=== PATIENT | female | born 1955 | race Caucasian/White ===

== ENCOUNTER 2019-10-15 20:47 | Inpatient (IN) | payer BC ==
[2019-10-15] MEDS ORDERED: NITROGLYCERIN SL TABS 0.4 MG TAB SUBLINGUAL PRN (21:00)
[2019-10-15] MEDS ORDERED: ASPIRIN 81 MG PO STA (21:00)
[2019-10-15] MEDS ORDERED: HEPARIN SODIUM,PORCINE 5,000 UNIT/ML 1 ML VIAL IV STA (21:00)
[2019-10-15 21:06] LABS: Glucose,Whole Blood 123 mg/dL (75-99)
[2019-10-15 21:09] LABS: Basophils % (A) 0 %; Eosinophils # (A) 0.1 k/uL (0-0.7); Eosinophils % (A) 1 %; HGB 11.9 gm/dL (11.4-16.0); Lymphocytes # (A) 0.9 k/uL (1.0-4.8); Lymphocytes % (A) 10 %; MCH 28.3 pg (25.0-35.0); MCV 85.8 fL (80.0-100.0); Mean Platelet Volume 7.8; Monocytes # (A) 0.4 k/uL (0-1.0); Monocytes % (A) 4 %; Neutrophils # (A) 8.4 k/uL (1.3-7.7); Neutrophils % (A) 85 %; Platelet Count 234 k/uL (150-450); WBC 9.8 k/uL (3.8-10.6)
--- NOTE | 2019-10-15 21:09 | ED ---
General Adult HPI - General Chief complaint: Nausea/Vomiting/Diarrhea Stated complaint: Not Feeling Well Time Seen by Provider: 10/15/19 20:58 Source: patient, EMS Mode of arrival: EMS Limitations: no limitations - History of Present Illness Initial comments: Patient presents the ED by ambulance for evaluation. Patient states that she is 5 days status post right knee surgery. Patient states that for the past 2 days she has felt "not well", she states that she has had nausea, vomiting and diaphoresis. Patient denies having any other symptoms or complaints. Patient denies fever or chills, headache, focal neuro deficit, chest pain or pressure, dyspnea, cough or cold symptoms, palpitations, dizziness, syncope, abdominal pain, diarrhea or constipation, hematemesis, bloody or melanotic stool, dysuria or urinary symptoms, thigh or calf pain, or any other symptoms or complaints. EKG done on the patient's arrival to the ED shows ST elevations in leads V1 and V2, so STEMI protocol/Back Filler Operator was activated. - Related Data Allergies Allergy/AdvReac Type Severity Reaction Status Date / Time No Known Allergies Allergy Verified 10/15/19 20:55 Review of Systems ROS Statement: Those systems with pertinent positive or pertinent negative responses have been documented in the HPI. ROS Other: All systems not noted in ROS Statement are negative. Past Medical History Past Medical History: Hypertension History of Any Multi-Drug Resistant Organisms: None Reported Past Surgical History: Orthopedic Surgery Past Psychological History: No Psychological Hx Reported Smoking Status: Never smoker Past Alcohol Use History: None Reported Past Drug Use History: None Reported General Exam Limitations: no limitations General appearance: alert, in no apparent distress Head exam: Present: atraumatic, normocephalic Eye exam: Present: normal appearance, PERRL, EOMI ENT exam: Present: mucous membranes moist Neck exam: Present: other (Trachea is in midline). Absent: tenderness Respiratory exam: Present: normal lung sounds bilaterally. Absent: respiratory distress, wheezes, rales, rhonchi Cardiovascular Exam: Present: regular rate, normal rhythm, normal heart sounds, other (Normal radial pulses bilaterally) GI/Abdominal exam: Present: soft. Absent: distended, tenderness Extremities exam: Present: other (Right knee surgical wound with arjun in place and no evidence of infection; negative Prateek's sign bilaterally). Absent: pedal edema, calf tenderness Neurological exam: Present: alert, oriented X3. Absent: motor sensory deficit Psychiatric exam: Present: normal affect, normal mood Skin exam: Present: warm, dry, intact, normal color Course Vital Signs 10/15/19 10/15/19 10/15/19 20:50 21:00 21:05 Temperature 97.8 F Pulse Rate 106 H 110 H Pulse Rate [ 115 H Miter Saw Operator ] Respiratory 16 18 Rate Blood Pressure 107/77 105/79 O2 Sat by Pulse 96 Oximetry 10/15/19 10/15/19 21:11 21:19 Temperature Pulse Rate 111 H 112 H Pulse Rate [ Miter Saw Operator ] Respiratory 16 18 Rate Blood Pressure 103/86 120/84 O2 Sat by Pulse 98 97 Oximetry - Reevaluation(s) Reevaluation #1: 10/15/19 21:00 Case, H&P and EKG findings were discussed with Dr. Nelson (interventional cardiology). Back Filler Operator was activated. Dr. Nelson agrees to proceed with STEMI protocol, and he states that he will be taking the patient to the Back Filler Operator. 10/15/19 21:13 Dr. Nelson called back to the ED requesting that I add a d-dimer onto the patient's blood work. He states that his plan to take the patient to the Back Filler Operator is unchanged. 10/15/19 21:28 Case, H&P, EKG findings and my discussion with Dr. Nelson as above were discussed with Dr. Baires (hospitalist). He accepts ICU admission. He has no further recommendations at this time. 10/15/19 21:30 Case, H&P, EKG findings and my discussions as above were discussed with Dr. Foreman (interior mechanic) who agrees to see the patient in consultation. EKG Findings - EKG Comments: EKG Findings:: Sinus tachycardia, ventricular rate of 112 bpm, normal CO and QRS intervals, normal QT interval, normal axis, ST elevations in leads V1 and V2, no old EKG is available for comparison at this time Medical Decision Making - Medical Decision Making Code STEMI/Back Filler Operator was activated on the patient's arrival to the ED given ST- elevations noted in V1 and V2 of the patient's EKG. Dr. Nelson (intervenional cardiology) was contacted by telephone. He has reviewed the patient's EKG himself, and he agrees with plan to take the patient to the Back Filler Operator. Dr. Baires (hospitalist) has accepted hospital admission. Dr. Foreman (interior mechanic) was also notified about the patient. - Lab Data Result diagrams: 10/15/19 21:00 10/15/19 21:00 Lab Results 10/15/19 10/15/19 10/15/19 Range/Units 20:54 21:00 21:00 WBC 9.8 (3.8-10.6) k/uL RBC 4.20 (3.80-5.40) m/uL Hgb 11.9 (11.4-16.0) gm/dL Hct 36.0 (34.0-46.0) % MCV 85.8 (80.0-100.0) fL MCH 28.3 (25.0-35.0) pg MCHC 33.0 (31.0-37.0) g/dL RDW 14.0 (11.5-15.5) % Plt Count 234 (150-450) k/uL Neutrophils % 85 % Lymphocytes % 10 % Monocytes % 4 % Eosinophils % 1 % Basophils % 0 % Neutrophils # 8.4 H (1.3-7.7) k/uL Lymphocytes # 0.9 L (1.0-4.8) k/uL Monocytes # 0.4 (0-1.0) k/uL Eosinophils # 0.1 (0-0.7) k/uL Basophils # 0.0 (0-0.2) k/uL PT (9.0-12.0) sec INR (<1.2) APTT (22.0-30.0) sec Sodium 130 L (137-145) mmol/L Potassium 4.4 (3.5-5.1) mmol/L Chloride 96 L (98-107) mmol/L Carbon Dioxide 27 (22-30) mmol/L Anion Gap 7 mmol/L BUN 15 (7-17) mg/dL Creatinine 0.74 (0.52-1.04) mg/dL Est GFR (CKD-EPI)AfAm >90 (>60 ml/min/1.73 sqM) Est GFR (CKD-EPI)NonAf 87 (>60 ml/min/1.73 sqM) Glucose 163 H (74-99) mg/dL POC Glucose (mg/dL) 123 H (75-99) mg/dL POC Glu Assistant Plant Manager ID Hafsa Gómez Calcium 8.7 (8.4-10.2) mg/dL Total Bilirubin 0.6 (0.2-1.3) mg/dL AST 46 H (14-36) U/L ALT 47 H (4-34) U/L Alkaline Phosphatase 87 (38-126) U/L Total Creatine Kinase (30-135) U/L Total Protein 6.0 L (6.3-8.2) g/dL Albumin 3.4 L (3.5-5.0) g/dL 10/15/19 10/15/19 Range/Units 21:00 21:00 WBC (3.8-10.6) k/uL RBC (3.80-5.40) m/uL Hgb (11.4-16.0) gm/dL Hct (34.0-46.0) % MCV (80.0-100.0) fL MCH (25.0-35.0) pg MCHC (31.0-37.0) g/dL RDW (11.5-15.5) % Plt Count (150-450) k/uL Neutrophils % % Lymphocytes % % Monocytes % % Eosinophils % % Basophils % % Neutrophils # (1.3-7.7) k/uL Lymphocytes # (1.0-4.8) k/uL Monocytes # (0-1.0) k/uL Eosinophils # (0-0.7) k/uL Basophils # (0-0.2) k/uL PT 10.6 (9.0-12.0) sec INR 1.0 (<1.2) APTT 23.0 (22.0-30.0) sec Sodium (137-145) mmol/L Potassium (3.5-5.1) mmol/L Chloride (98-107) mmol/L Carbon Dioxide (22-30) mmol/L Anion Gap mmol/L BUN (7-17) mg/dL Creatinine (0.52-1.04) mg/dL Est GFR (CKD-EPI)AfAm (>60 ml/min/1.73 sqM) Est GFR (CKD-EPI)NonAf (>60 ml/min/1.73 sqM) Glucose (74-99) mg/dL POC Glucose (mg/dL) (75-99) mg/dL POC Glu Assistant Plant Manager ID Calcium (8.4-10.2) mg/dL Total Bilirubin (0.2-1.3) mg/dL AST (14-36) U/L ALT (4-34) U/L Alkaline Phosphatase (38-126) U/L Total Creatine Kinase 47 (30-135) U/L Total Protein (6.3-8.2) g/dL Albumin (3.5-5.0) g/dL Critical Care Time Critical Care Time: Yes (STEMI) Total Critical Care Time: 30 Disposition Clinical Impression: Vomiting, Diaphoresis Narrative: Suspected ST-elevation myocardial infarction Disposition: ADMITTED IP TO THIS HOSP Condition: Stable Is patient prescribed a controlled substance at d/c from ED?: No Referrals: Holly Michel MD [Primary Care Provider] - 1-2 days Time of Disposition: 21:09
[2019-10-15 21:15] LABS: ALT 47 U/L (4-34); AST 46 U/L (14-36); African American GFR (CKD) >90 (>60 ml/min/1.73 sqM); Albumin 3.4 g/dL (3.5-5.0); Alkaline Phosphatase 87 U/L (38-126); Anion Gap 7 mmol/L; Blood Urea Nitrogen 15 mg/dL (7-17); Calcium 8.7 mg/dL (8.4-10.2); Carbon Dioxide 27 mmol/L (22-30); Chloride 96 mmol/L (98-107); Non-African American GFR(CKD) 87 (>60 ml/min/1.73 sqM); Potassium 4.4 mmol/L (3.5-5.1); Sodium 130 mmol/L (137-145); Total Bilirubin 0.6 mg/dL (0.2-1.3)
[2019-10-15 21:16] LABS: Prothrombin Time 10.6 sec (9.0-12.0)
[2019-10-15 21:31] LABS: Glucose 163 mg/dL (74-99)
[2019-10-15 21:34] LABS: Creatine Kinase MB 2.7 ng/mL (0.0-2.4)
[2019-10-15] MEDS ORDERED: LIDOCAINE 1% INJ 10MG/ML (20 ML MDV) ONE (21:34)
--- NOTE | 2019-10-15 21:34 | XR ---
EXAMINATION TYPE: XR chest 1V portable DATE OF EXAM: 10/15/2019 COMPARISON: NONE HISTORY: Chest pain TECHNIQUE: FINDINGS: Heart and mediastinum are normal. Lungs are clear. Diaphragm is normal. Bony thorax is inta ct. There are chest leads. IMPRESSION: Normal chest.
[2019-10-15] MEDS ORDERED: SODIUM CHLORIDE 0.9% 1,000 ML IV ONE (21:35)
[2019-10-15 21:39] LABS: Troponin I 0.465 ng/mL (0.000-0.034)
[2019-10-15] MEDS ORDERED: MIDAZOLAM 2 MG/2 ML VIAL IVP ONE (21:47)
[2019-10-15] MEDS ORDERED: LIDOCAINE 1% INJ 10MG/ML (20 ML MDV) SQ ONE (21:48)
[2019-10-15] MEDS ORDERED: IOPAMIDOL-370 125ML BTL INJ ONE (22:07)
[2019-10-15] MEDS ORDERED: RX INFO: IV CONTRAST WAS GIVEN 1 EACH MISC MISCELLANE PRN (22:07)
[2019-10-15] MEDS ORDERED: fentaNYL (PF) 50 MCG/ML 2 ML AMP ONE (22:13)
[2019-10-15] MEDS ORDERED: fentaNYL (PF) 50 MCG/ML 2 ML AMP IVP ONE (22:14)
[2019-10-15] MEDS ORDERED: SODIUM CHLORIDE 0.9% 1,000 ML IV SCH (22:15)
--- NOTE | 2019-10-15 22:15 | P.CRDCN ---
History of Present Illness Consult date: 10/15/19 Chief complaint: Shortness of breath History of present illness: 63-year-old female patient with a past medical history significant for hypertens ion was brought to the emergency department for further evaluation of symptoms of nausea and vomiting as well as diaphoresis. The patient stated that she underwent knee surgery about 2 weeks ago. For the last 3 days, she has not been feeding well. She has been feeling tired and fatigued and weak and ill earlier today she has been experiencing symptoms of nausea and vomiting as well as symptoms of being diaphoretic. No symptoms of chest pain or chest discomfort. She did have some shortness of breath. The EKG upon presenting to the emergency department shows sinus rhythm with sinus tachycardia and about [address] segment elevation in the septal leads. Because of her EKG finding which is concerning for ST elevation VT, an emergent heart catheterization was advised. The heart catheterization revealed normal coronaries. The left ventricular end-diastolic pressure was about 6-8 mmHg. When the patient arrived to the cardiac quality assurance lab technician she was slightly hypoxic and she is on oxygen. The procedure was performed from the right groin which was sealed using Angio-Seal with good hemostasis by the end. At this point, the patient is going to undergo computed tomography scan of the chest to rule out a PE which is likely the scenario giving her hypoxemia, sinus tachycardia, and recent history of surgery. At the same time we'll start the patient on heparin. Past Medical History Past Medical History: Hypertension History of Any Multi-Drug Resistant Organisms: None Reported Past Surgical History: Orthopedic Surgery Past Psychological History: No Psychological Hx Reported Smoking Status: Never smoker Past Alcohol Use History: None Reported Past Drug Use History: None Reported Medications and Allergies Allergies Allergy/AdvReac Type Severity Reaction Status Date / Time No Known Allergies Allergy Verified 10/15/19 20:55 Physical Exam Vitals: Vital Signs Temp Pulse Pulse Resp BP Pulse Ox 10/15/19 21:19 112 H 18 120/84 97 10/15/19 21:11 111 H 16 103/86 98 10/15/19 21:05 115 H 10/15/19 21:00 110 H 18 105/79 96 10/15/19 20:50 97.8 F 106 H 16 107/77 Intake and Output 10/15/19 10/15/19 10/15/19 06:59 14:59 22:59 Intake Total 200 Balance 200 Intake: IV 200 Other: Weight 83.915 kg - Constitutional General appearance: no acute distress - Respiratory Respiratory: bilateral: CTA - Cardiovascular Rhythm: regular Heart sounds: normal: S1, S2 Results 10/15/19 21:00 10/15/19 21:00 Cardiac Enzymes 10/15/19 10/15/19 Range/Units 21:00 21:00 AST 46 H (14-36) U/L CK-MB (CK-2) 2.7 H (0.0-2.4) ng/mL Troponin I 0.465 H* (0.000-0.034) ng/mL Coagulation 10/15/19 Range/Units 21:00 PT 10.6 (9.0-12.0) sec APTT 23.0 (22.0-30.0) sec CBC 10/15/19 Range/Units 21:00 WBC 9.8 (3.8-10.6) k/uL RBC 4.20 (3.80-5.40) m/uL Hgb 11.9 (11.4-16.0) gm/dL Hct 36.0 (34.0-46.0) % Plt Count 234 (150-450) k/uL Comprehensive Metabolic Panel 10/15/19 Range/Units 21:00 Sodium 130 L (137-145) mmol/L Potassium 4.4 (3.5-5.1) mmol/L Chloride 96 L (98-107) mmol/L Carbon Dioxide 27 (22-30) mmol/L BUN 15 (7-17) mg/dL Creatinine 0.74 (0.52-1.04) mg/dL Glucose 163 H (74-99) mg/dL Calcium 8.7 (8.4-10.2) mg/dL AST 46 H (14-36) U/L ALT 47 H (4-34) U/L Alkaline Phosphatase 87 (38-126) U/L Total Protein 6.0 L (6.3-8.2) g/dL Albumin 3.4 L (3.5-5.0) g/dL Current Medications Generic Name Dose Route Start Last Admin Trade Name Freq PRN Reason Stop Dose Admin Aspirin 325 mg 10/16/19 09:00 Aspirin PO DAILY ANALY Sodium Chloride 1,000 mls @ 75 mls/hr 02/23/20 22:15 Saline 0.9% IV 10/16/19 06:16 .[id number] ANALY Miscellaneous Information 1 each 10/15/19 22:07 Rx Info: Iv Contrast Was Given MISCELLANE 10/17/19 22:07 DAILY PRN Per Protocol Nitroglycerin 0.4 mg 10/15/19 21:00 Nitrostat SUBLINGUAL Q5M PRN Chest Pain Intake and Output 10/15/19 10/15/19 10/15/19 06:59 14:59 22:59 Intake Total 200 Balance 200 Intake: IV 200 Other: Weight 83.915 kg Patient Weight 10/16/19 06:59 Weight 83.915 kg 10/15/19 21:00 10/15/19 21:00 Assessment and Plan Assessment: Assessment #1 nausea, vomiting, and the phoresis #2 sinus tachycardia #3 status post knee surgery #4 history of hypertension Plan #1 severe underlying coronary artery disease was ruled out. A heart catheterization revealed no disease #2 PE to be ruled out. The patient currently is hemodynamically stable. We'll pursue with a CTA of the chest #3 restart the patient back on heparin as soon as possible. She was given bolus in the emergency department and will start the drip #4 obtain an echocardiogram was Doppler to assess the RV size and function #5 if the PE is massive by CTA, the patient possibly to be transferred to undergo Eko #6 continue monitor the blood pressure and heart rate Thank you for allowing us participate in her care. Please note that the patient is going to be admitted to the intensive care unit
[2019-10-15] MEDS ORDERED: HEPARIN SOD,PORK IN 0.45% NACL 25,000 UNIT in 0.45% NACL 1 250ML.BAG IV ONE (22:21)
--- NOTE | 2019-10-15 22:46 | CC ---
CARDIAC CATHETERIZATION REPORT DATE OF SERVICE: October 15, 2019 PERFORMING PHYSICIAN: Claudio Nelson MD. PROCEDURE PERFORMED: 1. Selective right and left coronary angiogram. 2. Left heart catheterization. INDICATION: This is a 63-year-old female patient with history of hypertension, who underwent recently knee surgery, presented to the emergency room with symptoms of nausea and vomiting and diaphoresis. The EKG in the ER revealed ST-segment elevation in the septal leads. Because of that, an emergent heart catheterization was advised. APPROACH: Right common femoral artery. COMPLICATION: None. LEVEL OF SEDATION: Moderate with sedation length of 15 minutes. PROCEDURE DESCRIPTION: After obtaining an informed consent, the patient was brought to the cardiac parking lot laborer. The right common femoral artery was cannulated using micropuncture technique and a micropuncture wire passed easily. Then I placed a 6-Moldovan sheath. After that, I did selective right and left coronary angiogram using JR4 and JL4 catheters. Left heart catheterization was performed using 6-Moldovan pigtail catheter. The procedure was completed without any complication. SELECTIVE CORONARY ANGIOGRAM: 1. The right coronary artery is a large caliber vessel and is a dominant vessel. The RCA is angiographically normal. Bifurcates into PDA and PLV branches distally and both appeared to be angiographically normal. 2. The left main is angiographically normal. It bifurcates into LCX, ramus intermedius, and left anterior descending artery. 3. The left circumflex is a large caliber vessel and it is a nondominant vessel. The LCX appeared to be angiographically normal in the midportion gives rise into an OM branch which seems to be normal. 4. The ramus intermedius is a large caliber vessel, seems to be angiographically normal. 5. The LAD is a large caliber vessel. It is angiographically normal, in the midportion gives rise into a diagonal branch which seems to be normal. HEMODYNAMICS: The LVEDP was 6-8 mmHg without significant gradient across the aortic valve. CONCLUSION: 1. Normal coronary angiogram. 2. Normal left ventricular end-diastolic pressure. POSTPROCEDURE MANAGEMENT: 1. Medical treatment. 2. Follow up with the patient. MMODL / IJN: [id number] /
--- NOTE | 2019-10-15 22:46 | LTR ---
DATE OF SERVICE: 10/15/2019 Dr. Holly Michel Dear Dr. Michel: Ms. Mikal Thomson presented to the emergency room at [facility] with nausea and vomiting and diaphoresis and EKG concerning for acute ST-elevation CA. An emergent heart catheterization was advised and revealed normal coronaries. The patient is in the process of being ruled out for PE. She is going to undergo a CTA of the chest. I want to thank you for allowing us to participate in her care and please do not hesitate to call if you have any questions or concern. Sincerely, MD NAYE Mcclellan / CRISTINA: [id number] /
[2019-10-15 22:59] LABS: Glucose,Whole Blood 125 mg/dL (75-99)
--- NOTE | 2019-10-15 23:02 | CT ---
EXAMINATION TYPE: CT chest angio for PE DATE OF EXAM: 10/15/2019 COMPARISON: HISTORY: STEMI, SOB CT DLP: 461.9 mGycm Automated exposure control for dose reduction was used. CONTRAST: Performed with IV Contrast, patient injected with 80 mL of Isovue 370. There are 3-D post processed images. There is a irregular 2 cm infiltrate posterior segment left upper lobe adjacent to the major fissure. There is no pleural effusion. Heart is borderline enlarged. There is no mediastinal adenopathy. Thor acic aorta is intact. There is no aneurysm or dissection. There are multiple large filling defects in both lower lobe pulmonary arteries. There are also fillin g defects extending into the right and left upper lobe pulmonary artery. There are no hilar masses. T he bony thorax is intact. There is spurring in the lower thoracic spine. I see no bony destructive pr ocess. Right ventricle is relatively large compared to the left ventricle. IMPRESSION: Numerous bilateral upper and lower lobe pulmonary emboli. No saddle embolism. Enlarged right ventricl e consistent with right heart strain. Nonspecific small infiltrate adjacent to the major fissure in the posterior segment left upper lobe. Exam results were discussed with the patient's nurse Aditya Will at 11:00 PM.
--- NOTE | 2019-10-16 01:00 | P.HPIM ---
History of Present Illness H&P Date: 10/16/19 The patient was seen and evaluated in the MICU @ 2330 Patient is a 60-year-old female with a PMH of hypertension and recent R knee replacement (10/03/19) who presented to the ED with complaints of worsening exertional dyspnea and overall not feeling well. The patient notes that her symptoms started suddenly on evening of Friday 10/13. She initially noticed that she was getting winded from doing simple tasks around the house, which prompted her to check her blood pressure which she noticed that her pulse was elevated to 110-115. She then also noted that her blood pressure was lower than usual and that she continued to feel ill, for which she activated EMS. She denied noticing lower extremity swelling, chest pain, headache, weakness, numbness, fever, chills, nausea, or vomiting. She denied any prior history of blood clots. The patient underwent an extensive evaluation in the ED with vital signs P 106, BP 107/77, and T 97.8 upon presentation. Laboratory evaluation revealed a troponin of 0.465, sodium 130, potassium 4.4, chloride 96, glucose 163, AST 46, and AST 47. EKG performed in the emergency room revealed sinus tachycardia [address] elevation noted in leads V1 and V2. A case was discussed with batch maker personal banking assistant by the ED physician, and the patient was subsequently taken for cardiac catheterization, which resulted in a normal coronary angiogram with normal left ventricular end-diastolic pressure. Chest CTA was performed and revealed numerous bilateral upper and lower lobe pulmonary emboli along with enlarged right ventricle consistent with right heart strain. The patient was started on Heparin infusion and admitted to the MICU. Review of Systems Pertinent positives and negatives as discussed in HPI, a complete review of systems was performed and all other systems are negative. Past Medical History Past Medical History: Hypertension History of Any Multi-Drug Resistant Organisms: None Reported Past Surgical History: Orthopedic Surgery Past Psychological History: No Psychological Hx Reported Smoking Status: Never smoker Past Alcohol Use History: None Reported Past Drug Use History: None Reported Medications and Allergies Allergies Allergy/AdvReac Type Severity Reaction Status Date / Time No Known Allergies Allergy Verified 10/15/19 20:55 Physical Exam Vitals: Vital Signs Temp Pulse Pulse Resp BP Pulse Ox 10/15/19 21:19 112 H 18 120/84 97 10/15/19 21:11 111 H 16 103/86 98 10/15/19 21:05 115 H 10/15/19 21:00 110 H 18 105/79 96 10/15/19 20:50 97.8 F 106 H 16 107/77 Intake and Output 10/15/19 10/15/19 10/16/19 14:59 22:59 06:59 Intake Total 300 Balance 300 Intake: IV 300 Other: Weight 83.915 kg General: non toxic, no distress, appears at stated age, obese Derm: no unusual rashes/lesions no unusual ecchymoses, warm, dry Head: atraumatic, normocephalic, symmetric Eyes: EOMI, no lid lag, anicteric sclera, pupils equal round reactive to light ENT: Nose and ears atraumatic, no thrush, no pharyngeal erythema Neck: No thyromegaly, no cervical lymphadenopathy, trachea midline, supple Mouth: no lip lesion, mucus membranes moist Cardiovascular: S1S2 reg, no murmur, positive posterior tibial pulse bilateral, no edema, capillary refill less than 2 seconds Lungs: CTA bilateral, no rhonchi, no rales , no accessory muscle use Abdominal: soft, nontender to palpation, no guarding, no appreciable organomegaly, normal bowel sounds Ext: no gross muscle atrophy, muscle strength 5 out of 5 in all 4 extremities grossly, no contractures, Neuro: CN II-XI grossly intact, light touch intact all 4 extremities, finger to nose within normal limits, Psych: Alert, oriented, appropriate affect Results CBC & Chem 7: 10/15/19 21:00 10/15/19 21:00 Labs: Abnormal Lab Results - Last 24 Hours (Table) 10/15/19 10/15/19 10/15/19 Range/Units 20:54 21:00 21:00 Neutrophils # 8.4 H (1.3-7.7) k/uL Lymphocytes # 0.9 L (1.0-4.8) k/uL Sodium 130 L (137-145) mmol/L Chloride 96 L (98-107) mmol/L Glucose 163 H (74-99) mg/dL POC Glucose (mg/dL) 123 H (75-99) mg/dL AST 46 H (14-36) U/L ALT 47 H (4-34) U/L CK-MB (CK-2) (0.0-2.4) ng/mL Troponin I (0.000-0.034) ng/mL Total Protein 6.0 L (6.3-8.2) g/dL Albumin 3.4 L (3.5-5.0) g/dL 10/15/19 10/15/19 Range/Units 21:00 22:57 Neutrophils # (1.3-7.7) k/uL Lymphocytes # (1.0-4.8) k/uL Sodium (137-145) mmol/L Chloride (98-107) mmol/L Glucose (74-99) mg/dL POC Glucose (mg/dL) 125 H (75-99) mg/dL AST (14-36) U/L ALT (4-34) U/L CK-MB (CK-2) 2.7 H (0.0-2.4) ng/mL Troponin I 0.465 H* (0.000-0.034) ng/mL Total Protein (6.3-8.2) g/dL Albumin (3.5-5.0) g/dL Assessment and Plan Plan: Sub-massive acute PE in setting of recent right knee replacement -Patient continues to be normotensive with pulse 100-110 -RV strain noted on CTA -Currently SpO2 95% on 5 L NC -C/w Heparin infusion -C/w MICU monitoring for now -May consider systemic thrombolysis if condition deteriorates (ie hypotension or worsening hypoxia) -Echocardiogram Troponin elevation, likely due to acute submassive PE -Continue to trend for now -Cardiac monitoring -Cardiac catheterization results appreciated -C/w ASA qd -Cardiology following HTN -C/w home antihypertensives DVT prophylaxis -Heparin infusion The patient is admitted with an anticipated greater than 2 midnight stay for evaluation of acute PE CODE STATUS: Full Code Discussed with: Patient Anticipated discharge date: 3-[address]: Home A total of 45 minutes was spent on the care of this complex patient more than 50% of the time was spent in counseling and care coordination.
[2019-10-16] MEDS ORDERED: HEPARIN SODIUM,PORCINE 5,000 UNIT/ML 1 ML VIAL IV PRN (01:49)
[2019-10-16] MEDS: HEPARIN SOD,PORK IN 0.45% NACL 25,000 UNIT in 0.45% NACL 1 250ML.BAG IV SCH ×2 (05:12→20:12)
[2019-10-16 06:41] LABS: Cholesterol 159 mg/dL (<200); HDL Cholesterol 53 mg/dL (40-60); LDL Cholesterol,Calculated 87 mg/dL (0-99); Triglycerides 94 mg/dL (<150)
--- NOTE | 2019-10-16 07:03 | P.PN ---
Subjective Progress Note Date: 10/16/19 Principal diagnosis: Pulmonary embolism This is a very pleasant 63-year-old female patient who underwent right knee surgery about 2 weeks ago presented to the emergency room complaining of diaphoresis associated with symptoms of nausea and vomiting. The EKG initially revealed sinus rhythm with ST segment elevation in the septal leads. Because of that the patient was called as a STEMI and she underwent an emergent heart catheterization which revealed normal coronaries. Subsequently CTA of the chest was done and revealed no mass pulmonary embolisms. She was restarted on heparin IV. The patient was seen today, October 162019. She is feeling better indeterminable shortness of breath. She is not on nonrebreather any more and currently she is on nasal cannula at 4 L at this point. Hemodynamically she is a stable beside mild sinus tachycardia with heart rates around 100 beats per minutes. The echocardiogram is in process to be done. The computed tomography scan showed evidence of RV strain. The troponin is slightly elevated. Objective - Vital Signs Vital signs: Vital Signs Temp 98.1 F 10/16/19 04:00 Pulse 102 H 10/16/19 04:00 Resp 16 10/16/19 04:00 BP 119/94 10/16/19 04:00 Pulse Ox 94 L 10/16/19 04:00 Intake & Output 10/15/19 10/16/19 10/16/19 18:59 06:59 18:59 Intake Total 900 Output Total 800 Balance 100 Weight 101 kg Intake: IV 300 Intake, IV Titration 600 Amount Sodium Chloride 0.9% 1, 600 000 ml @ 75 mls/hr IV . [id number] [facility] Rx#:[id number] Output: Urine 800 Other: Voiding Method Bedpan - Constitutional General appearance: Present: no acute distress - Respiratory Respiratory: bilateral: CTA - Cardiovascular Rhythm: regular Heart sounds: normal: S1, S2 - Labs CBC & Chem 7: 10/15/19 21:00 10/15/19 21:00 Labs: Abnormal Lab Results - Last 24 Hours (Table) 10/15/19 10/15/19 10/15/19 Range/Units 20:54 21:00 21:00 Neutrophils # 8.4 H (1.3-7.7) k/uL Lymphocytes # 0.9 L (1.0-4.8) k/uL APTT (22.0-30.0) sec Sodium 130 L (137-145) mmol/L Chloride 96 L (98-107) mmol/L Glucose 163 H (74-99) mg/dL POC Glucose (mg/dL) 123 H (75-99) mg/dL AST 46 H (14-36) U/L ALT 47 H (4-34) U/L CK-MB (CK-2) (0.0-2.4) ng/mL Troponin I (0.000-0.034) ng/mL Total Protein 6.0 L (6.3-8.2) g/dL Albumin 3.4 L (3.5-5.0) g/dL 10/15/19 10/15/19 10/16/19 Range/Units 21:00 22:57 05:55 Neutrophils # (1.3-7.7) k/uL Lymphocytes # (1.0-4.8) k/uL APTT (22.0-30.0) sec Sodium (137-145) mmol/L Chloride (98-107) mmol/L Glucose (74-99) mg/dL POC Glucose (mg/dL) 125 H (75-99) mg/dL AST (14-36) U/L ALT (4-34) U/L CK-MB (CK-2) 2.7 H (0.0-2.4) ng/mL Troponin I 0.465 H* 0.443 H* (0.000-0.034) ng/mL Total Protein (6.3-8.2) g/dL Albumin (3.5-5.0) g/dL 10/16/19 Range/Units 05:55 Neutrophils # (1.3-7.7) k/uL Lymphocytes # (1.0-4.8) k/uL APTT 75.3 H (22.0-30.0) sec Sodium (137-145) mmol/L Chloride (98-107) mmol/L Glucose (74-99) mg/dL POC Glucose (mg/dL) (75-99) mg/dL AST (14-36) U/L ALT (4-34) U/L CK-MB (CK-2) (0.0-2.4) ng/mL Troponin I (0.000-0.034) ng/mL Total Protein (6.3-8.2) g/dL Albumin (3.5-5.0) g/dL Assessment and Plan Assessment: Assessment #1 bilateral PE #2 status post knee surgery #3 history of hypertension #4 mild sinus tachycardia Plan #1 overall the patient clinically is doing better #2 the heart rate has came down as well #3 continue heparin IV. Switch the patient to oral anticoagulation if there is no plan to transfer the patient anywhere for any invasive procedure #4 follow-up on the echocardiogram which was ordered #5 follow-up with the patient Thank you for allowing us participate in her care
--- NOTE | 2019-10-16 08:38 | XR ---
EXAMINATION TYPE: XR chest 1V portable DATE OF EXAM: 10/16/2019 HISTORY: Shortness of breath. COMPARISON: 10/15/2019 TECHNIQUE: Single view of the chest is submitted. FINDINGS: Demonstrated are scattered senescent parenchymal change. There is no evidence for focal infiltrate. The heart is stable. Hilar and mediastinal structures are within normal limits. Degenerative changes are seen of the dorsal spine. IMPRESSION: 1. Chronic changes without evidence for acute pulmonary disease.
--- NOTE | 2019-10-16 08:39 | US ---
EXAMINATION TYPE: US venous doppler duplex LE DATE OF EXAM: 10/16/2019 8:07 AM COMPARISON: NONE CLINICAL HISTORY: Dx: Pulmonary Embolism. SIDE PERFORMED: Bilateral TECHNIQUE: The lower extremity deep venous system is examined utilizing real time linear array sonog sue with graded compression, doppler sonography and color-flow sonography. VESSELS IMAGED: External Iliac Vein (EIV) Common Femoral Vein Deep Femoral Vein Greater Saphenous Vein * Femoral Vein Popliteal Vein Small Saphenous Vein * Proximal Calf Veins (* superficial vessels) Right Leg: Negative for DVT Left Leg: Negative for DVT IMPRESSION: No evidence for DVT at this time.
[2019-10-16 08:48] LABS: HCT 31.3 % (34.0-46.0); HGB 10.5 gm/dL (11.4-16.0); MCH 28.7 pg (25.0-35.0); MCHC 33.5 g/dL (31.0-37.0); MCV 85.7 fL (80.0-100.0); Mean Platelet Volume 8.5; Platelet Count 193 k/uL (150-450); RBC 3.66 m/uL (3.80-5.40); WBC 7.2 k/uL (3.8-10.6)
[2019-10-16] MEDS ORDERED: ASPIRIN 325 MG TAB PO SCH (09:00)
[2019-10-16] MEDS: amLODIPine 5 MG TAB PO SCH ×2 (09:24→20:11)
[2019-10-16] MEDS ORDERED: SENNOSIDES 8.6 MG TAB PO PRN (09:50)
[2019-10-16 09:58] LABS: ALT 42 U/L (4-34); AST 35 U/L (14-36); African American GFR (CKD) >90 (>60 ml/min/1.73 sqM); Alkaline Phosphatase 80 U/L (38-126); Anion Gap 5 mmol/L; Blood Urea Nitrogen 12 mg/dL (7-17); Calcium 8.3 mg/dL (8.4-10.2); Carbon Dioxide 26 mmol/L (22-30); Chloride 103 mmol/L (98-107); Glucose 117 mg/dL (74-99); Non-African American GFR(CKD) >90 (>60 ml/min/1.73 sqM); Potassium 3.9 mmol/L (3.5-5.1); Sodium 134 mmol/L (137-145); Total Bilirubin 0.6 mg/dL (0.2-1.3); Total Protein 5.4 g/dL (6.3-8.2)
--- NOTE | 2019-10-16 11:00 | ECHOF ---
Referral Reason:submassive PE MEASUREMENTS -------- HEIGHT: 162.6 cm WEIGHT: 83.9 kg BP: 125/98 IVSd: 1.8 cm (0.6 - 1.1) LVIDd: 2.9 cm (3.9 - 5.3) LVPWd: 1.7 cm (0.6 - 1.1) IVSs: 2.0 cm LVIDs: 1.7 cm LVPWs: 2.3 cm RVIDd: 4.2 cm (< 3.3) LAESV Index (A-L): 20.24 ml/m Ao Diam: 3.5 cm (2.0 - 3.7) AV Cusp: 2.4 cm (1.5 - 2.6) MV E Bhupendra: 0.46 m/s MV DecT: 148 ms MV A Bhupendra: 0.81 m/s MV E/A Ratio: 0.57 AR PHT: 533 ms RAP: 20.00 mmHg RVSP: 67.72 mmHg FINDINGS -------- Sinus rhythm. This was a technically adequate study. The left ventricular size is normal. There is moderate concentric left ventricular hypertrophy. O verall left ventricular systolic function is normal with, an EF between 55 - 60 %. The diastolic fi lling pattern is normal for the age of the patient 5.92. The right ventricle is severely enlarged. RV Systolic Dysfunction Normal LA size by volume 22+/-6 ml/m2. The right atrium is moderately enlarged. Interatrial and interventricular septum intact. There is mild aortic regurgitation. There is no evidence of aortic stenosis. There is trace mitral regurgitation. Moderate to severe tricuspid regurgitation present. There is severe pulmonary hypertension. The r ight ventricular systolic pressure, as measured by Doppler, is 67.72mmHg. The aortic root size is normal. The inferior vena cava is dilated with no significant inspiratory collapse which is consistent estima anita right atrial pressure of >20 mmHg. There is no pericardial effusion. CONCLUSIONS -------- 1. Sinus rhythm. 2. This was a technically adequate study. 3. The left ventricular size is normal. 4. There is moderate concentric left ventricular hypertrophy. 5. Overall left ventricular systolic function is normal with, an EF between 55 - 60 %. 6. The diastolic filling pattern is normal for the age of the patient 5.92 7. The right ventricle is severely enlarged. 8. RV Systolic Dysfunction 9. Normal LA size by volume 22+/-6 ml/m2. 10. The right atrium is moderately enlarged. 11. Interatrial and interventricular septum intact. 12. There is mild aortic regurgitation. 13. There is no evidence of aortic stenosis. 14. There is trace mitral regurgitation. 15. Moderate to severe tricuspid regurgitation present. 16. There is severe pulmonary hypertension. 17. The right ventricular systolic pressure, as measured by Doppler, is 67.72mmHg. 18. The aortic root size is normal. 19. The inferior vena cava is dilated with no significant inspiratory collapse which is consistent es timated right atrial pressure of >20 mmHg. 20. There is no pericardial effusion. [employer]CH HAND SUPERVISOR: Mariposa Patino RDCS
--- NOTE | 2019-10-16 12:39 | P.CNPUL ---
History of Present Illness Consult date: 10/16/19 Requesting physician: Marita Baires Reason for consult: pulmonary embolism, other Chief complaint: Nausea vomiting and diaphoresis. And shortness of breath History of present illness: This is a 63-year-old female with history of hypertension, no previous history of documented coronary artery disease, patient had the right total knee arthroplasty done by Dr. Evangelista at [facility] on October 03. Her postoperative course was relatively uneventful, patient was discharged home on aspirin. Patient presented to the ER on Wednesday mostly complaining of not feeling well, feeling tired, fatigued, and she had intermittent episodes of nausea vomiting and diaphoresis. She was also complaining of shortness of breath. But no chest pain. EKG upon evaluation in the ER questioned ST elev ation in the septal leads, and the patient underwent emergent cardiac catheterization. She was found to have normal coronaries. Patient was sent for CT angiogram of the chest, and she was noted to have multiple pulmonary emboli. Patient was admitted to the ICU, placed on heparin, venous Doppler came back negative for DVT, patient also had an echocardiogram showing good LV function. Moderate to severe tricuspid regurgitation was noted. Severe pulmonary hypertension and right-sided pressures as high as 67 noted. Patient is feeling better since admission to the ICU and since she had been placed on heparin. Presently no cough no wheezing no shortness of breath, she is on few liters nasal cannula. In no form of distress. On the echocardiogram the right ventricle was noted to be enlarged, and there was evidence of right ventricular strain Review of Systems Constitutional: Mostly weakness fatigue and shortness of breath. No fever, no weight loss. HEENT: Negative. Pulmonary: As noted in HPI. Cardiac: Diaphoresis otherwise no other symptoms no chest pain, no palpitations. GI: Intermittent episodes of nausea and vomiting for the last 3 days prior to admission. Genitourinary: Denies any dysuria frequency urgency or hematuria. Musculoskeletal: Recent right total knee arthroplasty otherwise negative. Skin: No rashes, no pruritus. Neurologic: No headache or blurred vision or dizziness. Psychiatric: Denies any symptoms of active depression or anxiety. Hematologic: No previous history of deep vein thromboses or pulmonary embolism, no clotting bleeding or bruising. Endocrine: Denies any symptoms of heat or cold intolerance. Past Medical History Past Medical History: Hypertension History of Any Multi-Drug Resistant Organisms: None Reported Past Surgical History: Orthopedic Surgery Past Psychological History: No Psychological Hx Reported Smoking Status: Never smoker Past Alcohol Use History: None Reported Past Drug Use History: None Reported Medications and Allergies Home Medications Medication Instructions Recorded Confirmed Type Aspirin EC [Ecotrin Low Dose] 81 mg PO BID 10/16/19 10/16/19 History amLODIPine [Norvasc] 5 mg PO BID 10/16/19 10/16/19 History Allergies Allergy/AdvReac Type Severity Reaction Status Date / Time No Known Allergies Allergy Verified 10/16/19 09:06 Physical Exam Vitals: Vital Signs Temp Pulse Pulse Pulse Resp BP BP 10/16/19 10:00 97 14 146/105 10/16/19 09:00 101 H 12 129/97 10/16/19 08:00 104 H 15 105/90 10/16/19 07:00 108 H 16 125/98 10/16/19 06:00 95 14 110/93 10/16/19 05:00 97 14 136/84 10/16/19 04:00 98.1 F 102 H 16 119/94 10/16/19 03:01 101 H 15 112/94 10/16/19 02:00 96 16 122/90 10/16/19 01:00 101 H 16 119/94 10/16/19 00:00 98.1 F 100 16 127/100 10/15/19 23:00 105 H 16 138/105 10/15/19 21:19 112 H 18 120/84 10/15/19 21:11 111 H 16 103/86 10/15/19 21:05 115 H 10/15/19 21:00 110 H 18 105/79 10/15/19 20:50 97.8 F 106 H 16 107/77 Pulse Ox 10/16/19 10:00 97 10/16/19 09:00 97 10/16/19 08:00 95 10/16/19 07:00 95 10/16/19 06:00 97 10/16/19 05:00 95 10/16/19 04:00 94 L 10/16/19 03:01 95 10/16/19 02:00 95 10/16/19 01:00 95 10/16/19 00:00 96 10/15/19 23:00 100 10/15/19 21:19 97 02/23/20 21:11 98 10/15/19 21:05 10/15/19 21:00 96 10/15/19 20:50 Intake and Output 10/15/19 10/16/19 10/16/19 22:59 06:59 14:59 Intake Total 300 600 331.5 Output Total 800 550 Balance 300 -200 -218.5 Intake: IV 300 225 Sodium Chloride 0.9% 1, 225 000 ml @ 75 mls/hr IV . [id number] [facility] Rx#:[id number] Intake, IV Titration 600 106.5 Amount Heparin Sod,Pork in 0.45% 31.5 NaCl 25,000 unit In 0.45 % NaCl 1 250ml.bag @ 18 UNITS/KG/HR 15.105 mls/hr IV .[id number] [facility] Rx#: [id number] Sodium Chloride 0.9% 1, 600 75 000 ml @ 75 mls/hr IV . [id number] [facility] Rx#:[id number] Output: Urine 800 550 Other: Voiding Method Bedpan Bedpan # Voids 1 Weight 83.915 kg 101 kg Physical Exam: Revealed 63-year-old female in no distress. Head: Atraumatic, normocephalic. HEENT:[Neck is supple.] [No neck masses.] [No thyromegaly.] [No JVD.] Chest: [Clear throughout, no crackles, no rhonchi, no wheezes.] Cardiac Exam: [Normal S1 and S2, no S3 gallop, 2/6 systolic murmur thought the precordium. Abdomen: [Obese, Soft, nontender, no megaly, no rebound, no guarding, normal bowel sounds.] Extremities: [No clubbing, no edema, no cyanosis.] Evidence of recent right total knee arthroplasty scar, healed nicely. Neurological Exam: [No focal neurologic deficit.] Alert oriented 3. Psychiatric: Normal mood, affect and normal mental status examination. Skin: No rashes. Results - Laboratory Findings CBC and BMP: 10/16/19 08:27 10/16/19 08:27 PT/INR, D-dimer PT 10.6 sec (9.0-12.0) 10/15/19 21:00 INR 1.0 (<1.2) 10/15/19 21:00 Abnormal lab findings: Abnormal Labs 10/15/19 10/15/19 10/15/19 20:54 21:00 21:00 RBC Hgb Hct Neutrophils # 8.4 H Lymphocytes # 0.9 L APTT Sodium 130 L Chloride 96 L Glucose 163 H POC Glucose (mg/dL) 123 H Calcium AST 46 H ALT 47 H CK-MB (CK-2) Troponin I Total Protein 6.0 L Albumin 3.4 L 10/15/19 10/15/19 10/16/19 21:00 22:57 05:55 RBC Hgb Hct Neutrophils # Lymphocytes # APTT Sodium Chloride Glucose POC Glucose (mg/dL) 125 H Calcium AST ALT CK-MB (CK-2) 2.7 H Troponin I 0.465 H* 0.443 H* Total Protein Albumin 10/16/19 10/16/19 10/16/19 05:55 08:27 08:27 RBC 3.66 L Hgb 10.5 L Hct 31.3 L Neutrophils # Lymphocytes # APTT 75.3 H Sodium 134 L Chloride Glucose 117 H POC Glucose (mg/dL) Calcium 8.3 L AST ALT 42 H CK-MB (CK-2) Troponin I Total Protein 5.4 L Albumin 3.0 L - Diagnostic Findings CT scan - chest: image reviewed (Numerous bilateral upper and lower lobe emboli. No saddle embolism noted) Assessment and Plan Assessment: Impression: Acute bilateral pulmonary embolism, most likely provoked by recent total knee arthroplasty. Acute pulmonary hypertension secondary to pulmonary embolism History of benign essential hypertension. Normal cardiac catheterization on admission. Recommendation: Continue heparin for the next 24 hours. Consider switching the patient to Xarelto in the next 24 hours. Could possibly transfer the patient to an monitored cardiac bed today if she remains hemodynamically stable. We'll continue to follow. Patient will need to be on anticoagulation therapy for at least a 3 and possibly up to 6 months. Time with Patient: Greater than 30
[2019-10-16] MEDS: ACETAMINOPHEN TAB 325 MG TAB PO PRN (13:01)
--- NOTE | 2019-10-16 17:36 | P.PN ---
Progress Note - Text Progress Note Date: 10/16/19 Hospitalist Interval Note Patient seen and examined at bedside. Feeling much better than on admission. No chest pain at this time, not short of breath but laying down. O2 requirements decreasing. Vital signs reviewed General: ill appearing , no distress, appears at stated age, diaphoretic Derm: warm, dry Head: atraumatic, normocephalic, symmetric Eyes: EOMI, no lid lag, anicteric sclera Mouth: no lip lesion, mucus membranes moist Cardiovascular: S1S2 reg, no murmur, positive posterior tibial pulse bilateral, Lungs: decreased bs bilateral, no rhonchi, no rales , no accessory muscle use Abdominal: soft, nontender to palpation, no guarding, no appreciable organomegaly Ext: no gross muscle atrophy, no edema, no contractures Neuro: CN II-XI grossly intact, no focal neuro deficits Psych: Alert, oriented, appropriate affect Assessment/Plan: 1. Submassive PE bilateral multiple areas of infarct with RV strain and right ventricle systolic dysfunction along with severe pulmonary hypertension and moderate tricuspid regurgitation via echocardiogram -Continue with heparin drip -Wean O2 as able -She'll need a minimum of 6 months of anticoagulation therapy, this is a provoked pulmonary embolism secondary to recent total knee arthroplasty. Earline ient had been taking aspirin 81 mg twice daily after surgery, but had not been ambulating secondary to Terry use and sedation. - dopplers negative 2. acute hypoxic respiratory failure 3. Type II CT due to right heart strain from Pulmonary embolism This is an update note for patient , for full note on 10/16/19 see H and P. There is no charge associated with this note.
--- NOTE | 2019-10-16 18:54 | P.DS ---
Providers Date of admission: 10/15/19 21:36 Expected date of discharge: 10/16/19 Attending physician: Marita Baires MD Consults: 10/15/19 21:00 Consult Physician Stat Consulting Provider: [facility] Consult Reason/Comments: STEMI ACTIVATION COMPLETE Do you want consulting provider notified?: Yes 10/15/19 21:36 Consult Physician Urgent Consulting Provider: Bree Foreman Consult Reason/Comments: STEMI Do you want consulting provider notified?: Already Contacted Primary care physician: Holly Michel Hospital Course: Discharge Diagnosis: Submassive pulmonary embolism, with right heart strain as evidenced by right ventricular systolic dysfunction and severe pulmonary hypertension Acute hypoxic respiratory failure Type II myocardial infarction secondary to pulmonary embolism Hyponatremia HTN Persistent tachycardia Hospital Course: Patient is a 60-year-old female with a past medical history of hypertension, recent right knee replacement ( 10/03/19) who presented to the ED with complaints of worsening exertional dyspnea and overall not feeling well. Initial EKG in the ER showed ST segment elevation in V1 and V2. Initial laboratory analysis showed an elevated troponin of 0.46. She was taken to the senior label specialist and underwent cardiac catheterization which showed normal coronary arteries. She had a preserved ejection fraction. There was concern for possible pulmonary embolus. She was taken for CTA of the chest which showed bilateral upper and lower lobe pulmonary emboli with signs of right heart strain. She was started on a heparin drip and admitted to the ICU. During her initial heart cath she did become hypoxic she required a nonrebreather for a small period of time and then was able to eat greater than 5 L nasal cannula. During her hospital stay she remained persistently tachycardic between 100 -110. She was seen by cardio and pulmonary. She had an echocardiogram with preserved EF of 55-60%, RV systolic dysfunction, moderate to severe tricuspid regurgitation, severe pulmonary hypertension with RVSP 67.72. On review of this echo it appeared the patient would be a good candidate for EKOS. I contacted Dr. Bright at [facility], who agreed with accept the patient with plans for possible EKOS and felt the patient was a good candidate. For physical exam see progress note same date. A total of 35 minutes of time were spent preparing this complex discharge summary . Patient Condition at Discharge: Stable Plan - Discharge Summary New Discharge Prescriptions: No Action amLODIPine [Norvasc] 5 mg PO BID Aspirin EC [Ecotrin Low Dose] 81 mg PO BID Discharge Medication List Aspirin EC [Ecotrin Low Dose] 81 mg PO BID 10/16/19 [History] amLODIPine [Norvasc] 5 mg PO BID 10/16/19 [History] Follow up Appointment(s)/Referral(s): An[facility], [NON-STAFF] - 1-2 Days Holly Michel MD [Primary Care Provider] - 1-2 days
[2019-10-17 04:48] LABS: Basophils % (A) 0 %; Eosinophils # (A) 0.1 k/uL (0-0.7); Eosinophils % (A) 3 %; HCT 30.3 % (34.0-46.0); HGB 9.9 gm/dL (11.4-16.0); Lymphocytes # (A) 1.5 k/uL (1.0-4.8); Lymphocytes % (A) 27 %; MCH 27.9 pg (25.0-35.0); MCHC 32.8 g/dL (31.0-37.0); MCV 85.2 fL (80.0-100.0); Mean Platelet Volume 8.4; Monocytes # (A) 0.2 k/uL (0-1.0); Monocytes % (A) 4 %; Neutrophils # (A) 3.5 k/uL (1.3-7.7); Neutrophils % (A) 64 %; Platelet Count 187 k/uL (150-450); RBC 3.56 m/uL (3.80-5.40); RDW 14.2 % (11.5-15.5); WBC 5.5 k/uL (3.8-10.6)
[2019-10-17 05:01] LABS: African American GFR (CKD) >90 (>60 ml/min/1.73 sqM); Anion Gap 4 mmol/L; Blood Urea Nitrogen 12 mg/dL (7-17); Calcium 8.2 mg/dL (8.4-10.2); Carbon Dioxide 25 mmol/L (22-30); Chloride 107 mmol/L (98-107); Glucose 98 mg/dL (74-99); Non-African American GFR(CKD) >90 (>60 ml/min/1.73 sqM); Potassium 3.9 mmol/L (3.5-5.1); Sodium 136 mmol/L (137-145)
--- NOTE | 2019-10-17 06:59 | P.PN ---
Subjective Progress Note Date: 10/17/19 Principal diagnosis: Pulmonary embolism This is a very pleasant 63-year-old female patient who underwent right knee surgery about 2 weeks ago presented to the emergency room complaining of diaphoresis associated with symptoms of nausea and vomiting. The EKG initially revealed sinus rhythm with ST segment elevation in the septal leads. Because of that the patient was called as a STEMI and she underwent an emergent heart catheterization which revealed normal coronaries. Subsequently CTA of the chest was done and revealed no mass pulmonary embolisms. She was restarted on heparin IV. The patient was seen today, October 172019. Hemodynamically she seems to slightly better into above the heart rate. The blood pressure continues to be marginal for some reason she is on amlodipine which I'm going to discontinue. She continues to be on oxygen at 4-5 L through nasal cannula. The troponin is a slightly elevated. The BNP is slightly elevated. Echo showed signs of RV enlargement along with severe pulmonary hypertension. There is a discussion with the family regarding possible transfer to different facility to undergo ultrasonic guided thrombolyzes. Objective - Vital Signs Vital signs: Vital Signs Temp 98.7 F 10/17/19 04:00 Pulse 106 H 10/17/19 04:00 Resp 21 10/17/19 04:00 BP 101/82 10/17/19 04:00 Pulse Ox 97 10/17/19 04:00 Intake & Output 10/16/19 10/16/19 10/17/19 06:59 18:59 06:59 Intake Total 900 1231.5 893.134 Output Total 800 550 Balance 100 681.5 893.134 Weight 101 kg 101.2 kg Intake: IV 300 825 600 Sodium Chloride 0.9% 1, 825 600 000 ml @ 75 mls/hr IV . [id number] [facility] Rx#:[id number] Intake, IV Titration 600 106.5 293.134 Amount Heparin Sod,Pork in 0.45% 31.5 293.134 NaCl 25,000 unit In 0.45 % NaCl 1 250ml.bag @ 18 UNITS/KG/HR 15.105 mls/hr IV .[id number] [facility] Rx#: [id number] Sodium Chloride 0.9% 1, 600 75 000 ml @ 75 mls/hr IV . [id number] [facility] Rx#:[id number] Oral 300 Output: Urine 800 550 Other: Voiding Method Bedpan Bedpan Bedpan # Voids 1 4 - Constitutional General appearance: Present: no acute distress - Respiratory Respiratory: bilateral: CTA - Cardiovascular Rhythm: regular Heart sounds: normal: S1, S2 - Labs CBC & Chem 7: 10/17/19 04:19 10/17/19 04:19 Labs: Abnormal Lab Results - Last 24 Hours (Table) 10/16/19 10/16/19 10/16/19 Range/Units 08:27 08:27 13:51 RBC 3.66 L (3.80-5.40) m/uL Hgb 10.5 L (11.4-16.0) gm/dL Hct 31.3 L (34.0-46.0) % APTT 63.5 H (22.0-30.0) sec Sodium 134 L (137-145) mmol/L Glucose 117 H (74-99) mg/dL Calcium 8.3 L (8.4-10.2) mg/dL ALT 42 H (4-34) U/L Total Protein 5.4 L (6.3-8.2) g/dL Albumin 3.0 L (3.5-5.0) g/dL 10/17/19 10/17/19 10/17/19 Range/Units 04:19 04:19 04:19 RBC 3.56 L (3.80-5.40) m/uL Hgb 9.9 L (11.4-16.0) gm/dL Hct 30.3 L (34.0-46.0) % APTT 75.7 H (22.0-30.0) sec Sodium 136 L (137-145) mmol/L Glucose (74-99) mg/dL Calcium 8.2 L (8.4-10.2) mg/dL ALT (4-34) U/L Total Protein (6.3-8.2) g/dL Albumin (3.5-5.0) g/dL Assessment and Plan Assessment: Assessment #1 bilateral PE #2 status post knee surgery #3 history of hypertension #4 mild sinus tachycardia Plan #1 DC amlodipine in view of the marginal low pressure #2 continue heparin IV. #3 possible transfer to different facility
--- NOTE | 2019-10-17 10:41 | P.GSCN ---
History of Present Illness Consult date: 10/17/19 History of present illness: The patient is a 63-year-old female who 2 weeks ago had a right total knee replacement. She was discharged home and was essentially very sedentary without any significant physical therapy. She states she is only sent home with aspirin. She had began having increasing shortness of breath and diaphoresis on 10/15/2019. She presented to the hospital and was found to have issues concerning for possible cardiac event therefore she was taken immediately to the [facility] and a heart catheterization was performed. There was no evidence of any coronary disease therefore a CT angiogram was performed revealing significant bilateral pulmonary emboli with evidence of right heart strain on the computed tomography scan as well as an echocardiogram was performed again revealing right heart dysfunction. At this time she is on a heparin drip in the ICU. She is requiring oxygen for her hypoxia she states her breathing is a little bit better than prior to coming to the hospital.. She denies any swelling or issues in her legs that she is aware of. Past Medical History Past Medical History: Hypertension History of Any Multi-Drug Resistant Organisms: None Reported Past Surgical History: Orthopedic Surgery Past Psychological History: No Psychological Hx Reported Smoking Status: Never smoker Past Alcohol Use History: None Reported Past Drug Use History: None Reported Medications and Allergies Home Medications Medication Instructions Recorded Confirmed Type Aspirin EC [Ecotrin Low Dose] 81 mg PO BID 10/16/19 10/16/19 History amLODIPine [Norvasc] 5 mg PO BID 10/16/19 10/16/19 History Allergies Allergy/AdvReac Type Severity Reaction Status Date / Time No Known Allergies Allergy Verified 10/16/19 09:06 Surgical - Exam Vital Signs Temp Pulse Resp BP 97.8 F 106 H 16 107/77 10/15/19 20:50 10/15/19 20:50 10/15/19 20:50 10/15/19 20:50 Gen. a pleasant cooperative female in no acute distress. HEENT is normal size, atraumatic, extraocular motion intact. Neck is supple, trachea is midline. Heart is regular. Lungs are clear but decreased breath sounds. Abdomen is soft, nontender nondistended. Bilateral groins are clean and dry. No evidence of hematoma or pseudoaneurysm in the right groin. Extremity show no significant clubbing, cyanosis or edema. Postsurgical right knee. Normal mood and affect. Results CT angiogram of the chest is reviewed. Significant bilateral pulmonary emboli with evidence of right heart strain per RV to LV measurements. Echocardiogram shows right heart dysfunction with severe pulmonary hypertension - Labs 10/17/19 04:19 10/17/19 04:19 Abnormal Lab Results - Last 24 Hours (Table) 10/16/19 10/17/19 10/17/19 Range/Units 13:51 04:19 04:19 RBC 3.56 L (3.80-5.40) m/uL Hgb 9.9 L (11.4-16.0) gm/dL Hct 30.3 L (34.0-46.0) % APTT 63.5 H 75.7 H (22.0-30.0) sec Sodium (137-145) mmol/L Calcium (8.4-10.2) mg/dL 10/17/19 Range/Units 04:19 RBC (3.80-5.40) m/uL Hgb (11.4-16.0) gm/dL Hct (34.0-46.0) % APTT (22.0-30.0) sec Sodium 136 L (137-145) mmol/L Calcium 8.2 L (8.4-10.2) mg/dL Diabetes panel 10/17/19 Range/Units 04:19 Sodium 136 L (137-145) mmol/L Potassium 3.9 (3.5-5.1) mmol/L Chloride 107 (98-107) mmol/L Carbon Dioxide 25 (22-30) mmol/L BUN 12 (7-17) mg/dL Creatinine 0.56 (0.52-1.04) mg/dL Glucose 98 (74-99) mg/dL Calcium 8.2 L (8.4-10.2) mg/dL Calcium panel 10/17/19 Range/Units 04:19 Calcium 8.2 L (8.4-10.2) mg/dL Pituitary panel 10/17/19 Range/Units 04:19 Sodium 136 L (137-145) mmol/L Potassium 3.9 (3.5-5.1) mmol/L Chloride 107 (98-107) mmol/L Carbon Dioxide 25 (22-30) mmol/L BUN 12 (7-17) mg/dL Creatinine 0.56 (0.52-1.04) mg/dL Glucose 98 (74-99) mg/dL Calcium 8.2 L (8.4-10.2) mg/dL Adrenal panel 10/17/19 Range/Units 04:19 Sodium 136 L (137-145) mmol/L Potassium 3.9 (3.5-5.1) mmol/L Chloride 107 (98-107) mmol/L Carbon Dioxide 25 (22-30) mmol/L BUN 12 (7-17) mg/dL Creatinine 0.56 (0.52-1.04) mg/dL Glucose 98 (74-99) mg/dL Calcium 8.2 L (8.4-10.2) mg/dL Assessment and Plan Assessment: Bilateral submassive pulmonary emboli Right heart strain, severe pulmonary hypertension Recent surgery Plan: Continue heparin drip at this time. With the recent surgery was a relative contraindication to undergo TPA thrombolytics, at this time discussion was had with the patient regarding risks and benefits of both TPA, suction thrombectomy and no intervention. She and her at the bedside seemingly understand. Given the plan for suction thrombectomy, we will be able to keep the patient at this hospital to perform this procedure given her recent surgery.
[2019-10-17] MEDS: HEPARIN SOD,PORK IN 0.45% NACL 25,000 UNIT in 0.45% NACL 1 250ML.BAG IV SCH (10:55)
--- NOTE | 2019-10-17 11:47 | P.PN ---
Subjective Progress Note Date: 10/17/19 Principal diagnosis: Acute pulmonary embolism This is a 63-year-old female with history of hypertension, no previous history of documented coronary artery disease, patient had the right total knee arthroplasty done by Dr. Evangelista at [facility] on October 03. Her postoperative course was relatively uneventful, patient was discharged home on aspirin. Patient presented to the ER on Wednesday mostly complaining of not feeling well, feeling tired, fatigued, and she had intermittent episodes of nausea vomiting and diaphoresis. She was also complaining of shortness of breath. But no chest pain. EKG upon evaluation in the ER questioned ST elevation in the septal leads, and the patient underwent emergent cardiac catheterization. She was found to have normal coronaries. Patient was sent for CT angiogram of the chest, and she was noted to have multiple pulmonary emboli. Patient was admitted to the ICU, placed on heparin, venous Doppler came back negative for DVT, patient also had an echocardiogram showing good LV function. Moderate to severe tricuspid regurgitation was noted. Severe pulmonary hypertension and right-sided pressures as high as 67 noted. Patient is feeling better since admission to the ICU and since she had been placed on heparin. Pre sently no cough no wheezing no shortness of breath, she is on few liters nasal cannula. In no form of distress. On the echocardiogram the right ventricle was noted to be enlarged, and there was evidence of right ventricular strain Reevaluated today on 10/17/19, patient is doing well, on few liters nasal cannula, asymptomatic, denies any shortness of breath, denies any chest pain, patient is being evaluated for by vascular surgery for her massive pulmonary embolism and right ventricular strain noted on echocardiogram and on CT of the chest. Remains on heparin drip, patient is now being considered for suction thrombectomy to be done here at sometime today. CBC is normal lites are normal renal profile is normal. PTT is 75.7. Objective - Vital Signs Vital signs: Vital Signs Temp 97.9 F 10/17/19 08:00 Pulse 105 H 10/17/19 08:00 Resp 17 10/17/19 08:00 BP 124/94 10/17/19 08:00 Pulse Ox 96 10/17/19 08:00 Intake & Output 10/16/19 10/17/19 10/17/19 18:59 06:59 18:59 Intake Total 1231.5 893.134 667.943 Output Total 550 Balance 681.5 893.134 667.943 Weight 101.2 kg Intake: IV 825 600 600 Sodium Chloride 0.9% 1, 825 600 600 000 ml @ 75 mls/hr IV . [id number] ANALY Rx#:[id number] Intake, IV Titration 106.5 293.134 67.943 Amount Heparin Sod,Pork in 0.45% 31.5 293.134 67.943 NaCl 25,000 unit In 0.45 % NaCl 1 250ml.bag @ 18 UNITS/KG/HR 15.105 mls/hr IV .[id number] ANALY Rx#: [id number] Sodium Chloride 0.9% 1, 75 000 ml @ 75 mls/hr IV . [id number] ANALY Rx#:[id number] Oral 300 Output: Urine 550 Other: Voiding Method Bedpan Bedpan # Voids 1 4 1 # Bowel Movements 1 - Exam Physical Exam: Revealed 63-year-old female in no distress. Head: Atraumatic, normocephalic. HEENT:[Neck is supple.] [No neck masses.] [No thyromegaly.] [No JVD.] Chest: [Clear throughout, no crackles, no rhonchi, no wheezes.] Cardiac Exam: [Normal S1 and S2, no S3 gallop, 2/6 systolic murmur thought the precordium. Abdomen: [Obese, Soft, nontender, no megaly, no rebound, no guarding, normal bowel sounds.] Extremities: [No clubbing, no edema, no cyanosis.] Evidence of recent right total knee arthroplasty scar, healed nicely. Neurological Exam: [No focal neurologic deficit.] Alert oriented 3. Psychiatric: Normal mood, affect and normal mental status examination. Skin: No rashes. - Labs CBC & Chem 7: 10/17/19 04:19 10/17/19 04:19 Labs: Abnormal Lab Results - Last 24 Hours (Table) 10/16/19 10/17/19 10/17/19 Range/Units 13:51 04:19 04:19 RBC 3.56 L (3.80-5.40) m/uL Hgb 9.9 L (11.4-16.0) gm/dL Hct 30.3 L (34.0-46.0) % APTT 63.5 H 75.7 H (22.0-30.0) sec Sodium (137-145) mmol/L Calcium (8.4-10.2) mg/dL 10/17/19 Range/Units 04:19 RBC (3.80-5.40) m/uL Hgb (11.4-16.0) gm/dL Hct (34.0-46.0) % APTT (22.0-30.0) sec Sodium 136 L (137-145) mmol/L Calcium 8.2 L (8.4-10.2) mg/dL Assessment and Plan Assessment: Impression: Acute bilateral pulmonary embolism, most likely provoked by recent total knee arthroplasty. Acute pulmonary hypertension secondary to pulmonary embolism, and the right ventricular strain, considering her recent knee surgery, patient has contraindication to thrombolytic therapy. History of benign essential hypertension. Normal cardiac catheterization on admission. Recommendation: Continue heparin vascular surgery consultation was initiated, and in the process of evaluating the patient for possible suction thrombectomy. Continue to monitor the patient in the ICU for today, Discussed her condition with multiple consultants including cardiology vascular surgery and the admitting physician. We'll continue to follow Time with Patient: Less than 30
--- NOTE | 2019-10-17 14:32 | CDI ---
Documentation Clarification Form Date: 10/17/2019 01:47:07 PM From: An Baez RN, CCDS Admit Date: 10/15/2019 09:36:00 PM Patient Name: Mikal Thomson Visit Number: [id number] Discharge Date: ATTENTION: The Clinical Documentation Specialists (CDI) and [facility] Coding Staff appreciate your assistance in clarifying documentation. Please respond to the clarification below the line at the bottom and electronically sign. The CDI & [facility] Coding staff will review the response and follow-up if needed. Please note: Queries are made part of the Legal Health Record. If you have any questions, please contact the author of this message via ITS. Dr. Ortega Apple The patient presented on 10/15 with nausea, vomiting and diaphoresis. EKG done arrival to ED shows ST elevation in leads V1 and V2 so STEMI protocol/liaison inspection laboratory assistant was activated. Chest CT angio: positive for numerous bilateral upper and lower lobe pulmonary emboli. Enlarged right ventricle consistent with right heart strain. History/Risk Factors: Right Knee surgery (2 weeks ago per surgery notes on 10/17), Hypertension Clinical Indicators: 63-year-old female present to ED on 10/15 5 days post right knee surgery with complaints of "not well" having nausea, vomiting and diaphoresis. She was taken to the supervisor laboratory and conclusion was normal coronary angiogram. CTA on 10/15 found massive pulmonary embolism with right heart strain EKG: ST -elevation V1 and V2. 10/15 Labs: Troponin I 0.465 10/16 0.443, BNP 3290 10/15 Chest x-ray: normal 10/15 @ 20:50 Vital signs: 107/77 106 16 97.8, 21:00 VS: 105/79 110 18 96 % 6/L NC 10/16 ECHO: Right ventricle is severely enlarged, RV Systolic dysfunction, the right atrium is moderately enlarged. There is severe pulmonary hypertension. The right ventricular systolic pressure, as measured by Doppler, is 67.72 mmHg. Overall left ventricular systolic function is normal with, an EF between 55-60 % Treatment: ICU/Telemetry monitoring Heparin Drip Monitor PT/INR per orders Monitor O2 Sat's Titrate) In your professional opinion, can you please clarify Acute pulmonary hypertension secondary to pulmonary embolism, the right ventricular strain, if you are treating? Acute pulmonary embolism with Acute Cor pulmonale Other, please specify Unable to determine (Last Revision: November 2017) PE with acute cor pulmonale MTDD
--- NOTE | 2019-10-17 15:10 | CDI ---
Documentation Clarification Form Date: 10/17/2019 02:33:43 PM From: An Baez RN, CCDS Admit Date: 10/15/2019 09:36:00 PM Patient Name: Mikal Thomson Visit Number: [id number] Discharge Date: ATTENTION: The Clinical Documentation Specialists (CDI) and [facility] Coding Staff appreciate your assistance in clarifying documentation. Please respond to the clarification below the line at the bottom and electronically sign. The CDI & [facility] Coding staff will review the response and follow-up if needed. Please note: Queries are made part of the Legal Health Record. If you have any questions, please contact the author of this message via ITS. Dr. Vianey Pang Acute hypoxic respiratory failure is documented in your progress note on 10/16 and in the subsequent documentation on 10/17 and further clarification is needed. Patients Admitting Diagnosis: STEMI Post-Operative Diagnosis: Normal coronary arteries: Submassive PE bilateral multiple areas of infarct with RV strain and right ventricle systolic dysfunction along with severe pulmonary hypertension. Procedure performed: 10/15 Left heart Catheterization History/Risk Factors: Hypertension, Right Total Knee Arthroplasty (2 weeks ago per surgery notes on 10/17) Clinical Indicators: 63-year-old female presented to emergency room on 10/15 with symptoms of nausea, vomiting and diaphoresis. The EKG in the ER revealed ST-segment elevation in the septal leads per Cardiac catheterization report. Because of that, an emergent heart catheterization was advised. Conclusion: Normal coronary angiogram. Cath report complication: none 10/16 Discharge summary: Hospital course: "During her initial heart chat she did become hypoxic she required a nonrebreather for a small period of time and then was able greater than 5/L nasal cannula. During her hospital stay she remained persistently tachycardiac between 100-110". Vital signs on admission (10/15 @ 21:00) 105/79 110 18 96 % 6/L NC 10/16 pulmonary (Dr. Stock) " ER on Wednesday mostly complaining of not feeling well, feeling tired, fatigued and she had intermittent episodes of nausea vomiting and diaphoresis. She was also complaining of shortness of breath.". Impression: "Acute bilateral pulmonary embolism, most likely provoked by recent total knee arthroplasty. Treatment: ICU/Telemetry monitoring Heparin drip monitor O2 Sat's (titrate) In order to accurately reflect this patients severity of illness, please clarify if the post-operative diagnosis Acute Hypoxic Respiratory Failure is: An expected post-procedural or post-surgical condition An unexpected post-procedural or post-surgical condition related to surgical care (a complication of care) An unexpected post-procedural or post-surgical condition, related to the patients underlying medical comorbidities Other, please specify Unable to determine (Last Revision: November 2018) Acute hypoxic respiratory failure due to underlying pulmonary embolism which was provoked by prior recent Right TKA, expected outcome due to severity of Pulmonary embolism. JOSHUAD
[2019-10-17] MEDS ORDERED: fentaNYL (PF) 50 MCG/ML 2 ML AMP IVP ONE (16:40)
[2019-10-17] MEDS ORDERED: MIDAZOLAM 2 MG/2 ML VIAL IVP ONE (16:40)
[2019-10-17] MEDS ORDERED: LIDOCAINE 1% INJ 10MG/ML (20 ML MDV) SQ ONE (16:45)
[2019-10-17] MEDS ORDERED: IV FLUID CONTINUATION 1,000 ML IV ONE (16:57)
[2019-10-17] MEDS ORDERED: SODIUM CHLORIDE 0.9% 500 ML 500 ML IV ONE (17:05)
[2019-10-17] MEDS: ALTEPLASE 2 MG VIAL (CATHFLO) IV STA ×2 (17:21→17:32)
[2019-10-17] MEDS ORDERED: IOPAMIDOL-300 50ML BTL INJ ONE (17:37)
[2019-10-17] MEDS ORDERED: IOPAMIDOL-370 50ML BTL INJ ONE (17:37)
--- NOTE | 2019-10-17 17:43 | P.PN ---
Subjective Progress Note Date: 10/17/19 Principal diagnosis: Pulmonary embolus Patient was seen and examined this morning. No acute events overnight. Patient denies any shortness of breath, especially when sitting still. She denies any chest pain or palpitations. No nausea or vomiting. No fever or chills. Ramon rojo on heparin drip for pulmonary embolus causing right ventricular strain. Objective - Vital Signs Vital signs: Vital Signs Temp 97.9 F 10/17/19 08:00 Pulse 105 H 10/17/19 08:00 Resp 17 10/17/19 08:00 BP 124/94 10/17/19 08:00 Pulse Ox 96 10/17/19 08:00 Intake & Output 10/16/19 10/17/19 10/17/19 18:59 06:59 18:59 Intake Total 1231.5 893.134 794.572 Output Total 550 Balance 681.5 893.134 794.572 Weight 101.2 kg Intake: IV 825 600 700 Sodium Chloride 0.9% 1, 825 600 600 000 ml @ 75 mls/hr IV . [id number] ANALY Rx#:[id number] Intake, IV Titration 106.5 293.134 94.572 Amount Heparin Sod,Pork in 0.45% 31.5 293.134 94.572 NaCl 25,000 unit In 0.45 % NaCl 1 250ml.bag @ 18 UNITS/KG/HR 15.105 mls/hr IV .[id number] ANALY Rx#: [id number] Sodium Chloride 0.9% 1, 75 000 ml @ 75 mls/hr IV . [id number] ANALY Rx#:[id number] Oral 300 Output: Urine 550 Other: Voiding Method Bedpan Bedpan # Voids 1 4 1 # Bowel Movements 1 - Exam General: [non toxic], [no distress but appears short of breath], [appears at stated age] Derm: [warm], [dry] Head: [atraumatic], [normocephalic], [symmetric] Eyes: [EOMI], [no lid lag], [anicteric sclera] Mouth: [no lip lesion], [mucus membranes moist] Cardiovascular: [S1S2 reg], [tachycardia], [positive DP pulse bilateral], Lungs: [CTA bilateral], [no rhonchi, no rales] , [no accessory muscle use] Abdominal: [soft], [ nontender to palpation], [no guarding], [no appreciable org anomegaly] Ext: [no gross muscle atrophy], [no edema], [no contractures] Neuro: [no focal neuro deficits] Psych: [Alert], [oriented], [appropriate affect] - Labs CBC & Chem 7: 10/17/19 04:19 10/17/19 04:19 Labs: Abnormal Lab Results - Last 24 Hours (Table) 10/17/19 10/17/19 10/17/19 Range/Units 04:19 04:19 04:19 RBC 3.56 L (3.80-5.40) m/uL Hgb 9.9 L (11.4-16.0) gm/dL Hct 30.3 L (34.0-46.0) % APTT 75.7 H (22.0-30.0) sec Sodium 136 L (137-145) mmol/L Calcium 8.2 L (8.4-10.2) mg/dL 10/17/19 Range/Units 11:16 RBC (3.80-5.40) m/uL Hgb (11.4-16.0) gm/dL Hct (34.0-46.0) % APTT 43.9 H (22.0-30.0) sec Sodium (137-145) mmol/L Calcium (8.4-10.2) mg/dL Assessment and Plan Assessment: Submassive PE with right heart strain and severe pulmonary hypertension Acute hypoxic respiratory failure due to above Type II myocardial infarction secondary to pulmonary embolus Hypertension CTA chest shows numerous upper and lower lobe pulmonary emboli with no saddle embolus, enlarged right ventricle with right heart strain. Echocardiogram shows EF 55-60% with moderate concentric LVH, enlarged right ventricle, severe pulmonary hypertension. Patient has been on a heparin drip and initial plans to transfer to [facility] has been deferred after discussion with the grizzly worker. Vascular surgery has been consulted and their plans to go ahead with suction thrombectomy. She is currently saturating mid 90s on 4 L nasal cannula which we continued. Troponins were initially elevated for which cardiac catheterization was performed on admission which showed clean coronaries. Her troponin elevation is likely type II demand ischemia. Blood pressure has been within normal limits. Prognosis is extremely guarded at this time. Patient is pending clinical improvement.
[2019-10-17] MEDS: ACETAMINOPHEN TAB 325 MG TAB PO PRN (21:20)
[2019-10-18 05:24] LABS: Basophils % (A) 0 %; Eosinophils # (A) 0.1 k/uL (0-0.7); Eosinophils % (A) 2 %; HCT 29.6 % (34.0-46.0); HGB 9.7 gm/dL (11.4-16.0); Hypochromasia Slight; Lymphocytes # (A) 1.3 k/uL (1.0-4.8); Lymphocytes % (A) 27 %; MCH 28.6 pg (25.0-35.0); MCHC 32.6 g/dL (31.0-37.0); MCV 87.5 fL (80.0-100.0); Mean Platelet Volume 7.8; Monocytes # (A) 0.2 k/uL (0-1.0); Monocytes % (A) 5 %; Neutrophils # (A) 3.2 k/uL (1.3-7.7); Neutrophils % (A) 64 %; Platelet Count 168 k/uL (150-450); RBC 3.38 m/uL (3.80-5.40); RDW 14.4 % (11.5-15.5)
[2019-10-18 05:32] LABS: African American GFR (CKD) >90 (>60 ml/min/1.73 sqM); Anion Gap 4 mmol/L; Blood Urea Nitrogen 12 mg/dL (7-17); Carbon Dioxide 23 mmol/L (22-30); Chloride 108 mmol/L (98-107); Non-African American GFR(CKD) >90 (>60 ml/min/1.73 sqM); Potassium 3.7 mmol/L (3.5-5.1); Sodium 135 mmol/L (137-145)
[2019-10-18 06:15] LABS: Calcium 8.2 mg/dL (8.4-10.2); Glucose 88 mg/dL (74-99)
[2019-10-18] MEDS: HEPARIN SOD,PORK IN 0.45% NACL 25,000 UNIT in 0.45% NACL 1 250ML.BAG IV SCH (06:25)
--- NOTE | 2019-10-18 06:44 | P.OP ---
Date of Procedure: 10/17/19 Preoperative Diagnosis: Bilateral pulmonary embolism with right heart strain Postoperative Diagnosis: Same Procedure(s) Performed: 1. Ultrasound guided right common femoral vein access 2. Right pulmonary artery selective angiogram 3. Left pulmonary artery selective angiogram 4. Percutaneous Mechanical thrombectomy of bilateral pulmonary artery thrombus with Penumbra CAT 8 device 5. Intravascular Pulmonary artery pressure measurement Anesthesia: local, other (moderate conscious sedation x 60 mins) Surgeon: Eliu Rutledge Estimated Blood Loss (ml): 300 Pathology: none sent Condition: stable Disposition: ICU Indications for Procedure: 63 year old female who is currently being treated for bilateral PE's seen on CTA. Patient recently had a total knee surgery performed and noted earlier this week that she was having some increase shortness of breath. Currently patient was on 5 liters of oxygen and states if she does any activity her shortness of breath worsens. She underwent ECHO which showed significant right heart strain. We discussed options for intervention including thrombolysis versus thrombectomy and due to the risks of thrombolysis she did not want to be transferred to have EKOS. She presents today for percutaneous thrombectomy. Operative Findings: Large clot burden right inferior branch of the pulmonary artery as well as the left inferior pulmonary artery branch Description of Procedure: After written and informed consent was obtained and all risks, benefits, and complications were discussed the patient was brought to the medical lab technician and laid in a supine position. The groins were prepped and draped in the usual sterile fashion. Patient was given versed and fentanyl for conscious sedation and monitored with continuous ekg and pulse ox monitoring. Using ultrasound the right femoral vein was located and was patent, compressible without thrombus. Using a multipurpose needle and seldinger technique the femoral vein was accessed and a 10F sheath was placed. Patient's heparin drip was continued through the procedure. An 035 glidewire was then placed into the IVC and using a Berenstein catheter the right heart was entered and wire was placed into the each pulmonary artery and selective angiograms were obtained as well as pulmonary artery pressures which were 46-48. Due to the clot burden a Penumbra CAT 8 device was then guided into the pulmonary arteries and suction thrombe ctomy was performed to remove the clot. Multiple passes were performed with large amount of clot removed from the right inferior pulmonary artery. Once completed 2mg of TPA was placed in the right pulmonary artery and angiogram was obtained demonstrating marked improvement and reduction of thrombus. Attention was then placed to the left pulmonary artery and suction thrombectomy was then performed with large amount of clot removal. Final angiogram was obtained with improvement of flow noted. Catheter was then withdrawn into the bifurcation and pulmonary artery pressures were obtained again demonstrating slight improvement now at 42-43. Once completed all wires, catheters and sheath was removed and pressure was held for hemostasis. The patient tolerated the procedure well, stated her breathing felt improved and was sent back to ICU for recovery.
--- NOTE | 2019-10-18 07:31 | P.PN ---
Subjective Progress Note Date: 10/18/19 Principal diagnosis: Pulmonary embolism This is a very pleasant 63-year-old female patient who underwent right knee surgery about 2 weeks ago presented to the emergency room complaining of diaphoresis associated with symptoms of nausea and vomiting. The EKG initially revealed sinus rhythm with ST segment elevation in the septal leads. Because of that the patient was called as a STEMI and she underwent an emergent heart catheterization which revealed normal coronaries. Subsequently CTA of the chest was done and revealed no mass pulmonary embolisms. She was restarted on heparin IV. The patient was seen today, October 182019. She underwent yesterday mechanical thrombectomy. She is feeling overall better clinically. She is off oxygen completely. Hemodynamically she is stable as well as. I am going to DC the heparin and start the patient on oral anticoagulation. The patient possibly can be discharged out of the ICU. Objective - Vital Signs Vital signs: Vital Signs Temp 98.7 F 10/18/19 04:00 Pulse 79 10/18/19 04:00 Resp 18 10/18/19 04:00 BP 103/76 10/18/19 04:00 Pulse Ox 97 10/18/19 04:00 Intake & Output 10/17/19 10/18/19 10/18/19 18:59 06:59 18:59 Intake Total 3640.133 6787.371 Output Total 300 Balance 7498.137 0998.371 Weight 99.4 kg Intake: IV 1350 600 Sodium Chloride 0.9% 1, 1200 600 000 ml @ 75 mls/hr IV . [id number] ANALY Rx#:[id number] Intake, IV Titration 94.572 223.371 Amount Heparin Sod,Pork in 0.45% 94.572 223.371 NaCl 25,000 unit In 0.45 % NaCl 1 250ml.bag @ 18 UNITS/KG/HR 15.105 mls/hr IV .[id number] ANALY Rx#: [id number] Oral 500 Output: Urine 300 Other: Voiding Method Bedside Commode Toilet Bedpan Bedside Commode Bedpan # Voids 4 3 # Bowel Movements 1 - Constitutional General appearance: Present: no acute distress - Respiratory Respiratory: bilateral: CTA - Cardiovascular Rhythm: regular Heart sounds: normal: S1, S2 - Labs CBC & Chem 7: 10/18/19 04:59 10/18/19 04:59 Labs: Abnormal Lab Results - Last 24 Hours (Table) 10/17/19 10/18/19 10/18/19 Range/Units 11:16 00:38 04:59 RBC 3.38 L (3.80-5.40) m/uL Hgb 9.7 L (11.4-16.0) gm/dL Hct 29.6 L (34.0-46.0) % APTT 43.9 H 52.2 H (22.0-30.0) sec Sodium (137-145) mmol/L Chloride (98-107) mmol/L Calcium (8.4-10.2) mg/dL 10/18/19 10/18/19 Range/Units 04:59 04:59 RBC (3.80-5.40) m/uL Hgb (11.4-16.0) gm/dL Hct (34.0-46.0) % APTT 56.8 H (22.0-30.0) sec Sodium 135 L (137-145) mmol/L Chloride 108 H (98-107) mmol/L Calcium 8.2 L (8.4-10.2) mg/dL Assessment and Plan Assessment: Assessment #1 bilateral PE #2 status post knee surgery #3 history of hypertension #4 mild sinus tachycardia Plan #1 DC heparin and start the patient on oral anticoagulation #2 follow-up with the patient
[2019-10-18] MEDS ORDERED: APIXABAN 5 MG TAB PO SCH (09:00)
[2019-10-18 09:11] VITALS: TEMP 98.1
--- NOTE | 2019-10-18 09:40 | IR ---
Fluoroscopy HISTORY: Pulmonary embolism 20.9 minutes fluoroscopy time supplied to the referring clinician. 1246 intraoperative C-arm images document the procedure. See dictated report from vascular surgery.
--- NOTE | 2019-10-18 09:55 | P.PN ---
Subjective Progress Note Date: 10/18/19 Patient was seen and examined sitting up in bed. Yesterday the patient underwent a percutaneous Mechanical thrombectomy of bilateral pulmonary artery thrombus. Patient states she overall feels better. Patient states her breathing has become easier. She's been up out of bed to the commode 2-3 times. The patient denies any chest pain, shortness of breath has improved, and denies any fevers. Objective - Vital Signs Vital signs: Vital Signs Temp 98.1 F 10/18/19 08:00 Pulse 96 10/18/19 08:00 Resp 16 10/18/19 08:00 BP 115/73 10/18/19 08:00 Pulse Ox 97 10/18/19 08:27 Intake & Output 10/17/19 10/18/19 10/18/19 18:59 06:59 18:59 Intake Total 1007.340 9785.371 Output Total 300 Balance 5704.029 9666.371 Weight 99.4 kg Intake: IV 1350 600 Sodium Chloride 0.9% 1, 1200 600 000 ml @ 75 mls/hr IV . [id number] ANALY Rx#:[id number] Intake, IV Titration 94.572 223.371 Amount Heparin Sod,Pork in 0.45% 94.572 223.371 NaCl 25,000 unit In 0.45 % NaCl 1 250ml.bag @ 18 UNITS/KG/HR 15.105 mls/hr IV .[id number] ANALY Rx#: [id number] Oral 500 Output: Urine 300 Other: Voiding Method Bedside Commode Toilet Bedpan Bedside Commode Bedpan # Voids 4 3 # Bowel Movements 1 - Exam General appearance: The patient is alert, oriented, in no acute distress. HET: Head is normocephalic and atraumatic. Pupils are equal and reactive. Oropharynx is clear without lesions. Neck: Supple without lymphadenopathy. Trachea midline. Heart: S1 S2. Regular rate and rhythm. Lungs: No crackles or wheezes are heard. Extremities: Right groin access without any bleeding, no palpable hematoma noted, minimal ecchymosis. Right knee incision approximated with arjun. Normal skin color and turgor. No cyanosis, rash, ulceration, clubbing, or edema. Radial and pedal pulses are 2/4 bilaterally. Neurological: No focal deficits. Strength and sensation are grossly intact. - Labs CBC & Chem 7: 10/18/19 04:59 10/18/19 04:59 Labs: Abnormal Lab Results - Last 24 Hours (Table) 10/17/19 10/18/19 10/18/19 Range/Units 11:16 00:38 04:59 RBC 3.38 L (3.80-5.40) m/uL Hgb 9.7 L (11.4-16.0) gm/dL Hct 29.6 L (34.0-46.0) % APTT 43.9 H 52.2 H (22.0-30.0) sec Sodium (137-145) mmol/L Chloride (98-107) mmol/L Calcium (8.4-10.2) mg/dL 10/18/19 10/18/19 Range/Units 04:59 04:59 RBC (3.80-5.40) m/uL Hgb (11.4-16.0) gm/dL Hct (34.0-46.0) % APTT 56.8 H (22.0-30.0) sec Sodium 135 L (137-145) mmol/L Chloride 108 H (98-107) mmol/L Calcium 8.2 L (8.4-10.2) mg/dL Assessment and Plan Assessment: #1 bilateral submassive pulmonary emboli #2 right heart strain, severe pulmonary hypertension #3 recent right knee surgery Plan: The patient is status post-op day 1 for suction thrombectomy. The patient overall is doing well, breathing has improved. Vital signs remained stable. From a vascular standpoint patient may be started on Eliquis and discharged home on Eliquis. The patient is to follow-up with Dr. Rutledge in the office in 10-[address] Pineda discussed with Dr. Nelson that patient will need an echocardiogram 24-48 hours after the procedure, Dr. Nelson stated the patient can be seen in the office for an outpatient echocardiogram within the next 1-2 days. The above dictated assessment and findings were discussed with Dr. Pineda. The impression and plan of care have been directed as dictated.
--- NOTE | 2019-10-18 10:44 | P.PN ---
Subjective Progress Note Date: 10/18/19 Principal diagnosis: Acute pulmonary embolism This is a 63-year-old female with history of hypertension, no previous history of documented coronary artery disease, patient had the right total knee arthroplasty done by Dr. Evangelista at [facility] on October 03. Her postoperative course was relatively uneventful, patient was discharged home on aspirin. Patient presented to the ER on Wednesday mostly complaining of not feeling well, feeling tired, fatigued, and she had intermittent episodes of nausea vomiting and diaphoresis. She was also complaining of shortness of breath. But no chest pain. EKG upon evaluation in the ER questioned ST elevation in the septal leads, and the patient underwent emergent cardiac catheterization. She was found to have normal coronaries. Patient was sent for CT angiogram of the chest, and she was noted to have multiple pulmonary emboli. Patient was admitted to the ICU, placed on heparin, venous Doppler came back negative for DVT, patient also had an echocardiogram showing good LV function. Moderate to severe tricuspid regurgitation was noted. Severe pulmonary hypertension and right-sided pressures as high as 67 noted. Patient is feeling better since admission to the ICU and since she had been placed on heparin. Pre sently no cough no wheezing no shortness of breath, she is on few liters nasal cannula. In no form of distress. On the echocardiogram the right ventricle was noted to be enlarged, and there was evidence of right ventricular strain Reevaluated today on 10/17/19, patient is doing well, on few liters nasal cannula, asymptomatic, denies any shortness of breath, denies any chest pain, patient is being evaluated for by vascular surgery for her massive pulmonary embolism and right ventricular strain noted on echocardiogram and on CT of the chest. Remains on heparin drip, patient is now being considered for suction thrombectomy to be done here at sometime today. CBC is normal lites are normal renal profile is normal. PTT is 75.7. Reevaluated today on 10/18, patient is doing well, underwent percutaneous mechanical thrombectomy of bilateral pulmonary artery thrombi. Patient seems to be doing fairly well, asymptomatic, on room air. She will be switched to Eliquis, and could be considered for discharge home today. Objective - Vital Signs Vital signs: Vital Signs Temp 98.1 F 10/18/19 08:00 Pulse 96 10/18/19 08:00 Resp 16 10/18/19 08:00 BP 115/73 10/18/19 08:00 Pulse Ox 97 10/18/19 08:27 Intake & Output 10/17/19 10/18/19 10/18/19 18:59 06:59 18:59 Intake Total 7103.706 0804.371 Output Total 300 Balance 2360.833 6885.371 Weight 99.4 kg Intake: IV 1350 600 Sodium Chloride 0.9% 1, 1200 600 000 ml @ 75 mls/hr IV . [id number] ANALY Rx#:[id number] Intake, IV Titration 94.572 223.371 Amount Heparin Sod,Pork in 0.45% 94.572 223.371 NaCl 25,000 unit In 0.45 % NaCl 1 250ml.bag @ 18 UNITS/KG/HR 15.105 mls/hr IV .[id number] ANALY Rx#: [id number] Oral 500 Output: Urine 300 Other: Voiding Method Bedside Commode Toilet Bedpan Bedside Commode Bedpan # Voids 4 3 # Bowel Movements 1 - Exam Physical Exam: Revealed 63-year-old female in no distress. Head: Atraumatic, normocephalic. HEENT:[Neck is supple.] [No neck masses.] [No thyromegaly.] [No JVD.] Chest: [Clear throughout, no crackles, no rhonchi, no wheezes.] Cardiac Exam: [Normal S1 and S2, no S3 gallop, 2/6 systolic murmur thought the precordium. Abdomen: [Obese, Soft, nontender, no megaly, no rebound, no guarding, normal bowel sounds.] Extremities: [No clubbing, no edema, no cyanosis.] Evidence of recent right total knee arthroplasty scar, healed nicely. Neurological Exam: [No focal neurologic deficit.] Alert oriented 3. Psychiatric: Normal mood, affect and normal mental status examination. Skin: No rashes. - Labs CBC & Chem 7: 10/18/19 04:59 10/18/19 04:59 Labs: Abnormal Lab Results - Last 24 Hours (Table) 10/17/19 10/18/19 10/18/19 Range/Units 11:16 00:38 04:59 RBC 3.38 L (3.80-5.40) m/uL Hgb 9.7 L (11.4-16.0) gm/dL Hct 29.6 L (34.0-46.0) % APTT 43.9 H 52.2 H (22.0-30.0) sec Sodium (137-145) mmol/L Chloride (98-107) mmol/L Calcium (8.4-10.2) mg/dL 10/18/19 10/18/19 Range/Units 04:59 04:59 RBC (3.80-5.40) m/uL Hgb (11.4-16.0) gm/dL Hct (34.0-46.0) % APTT 56.8 H (22.0-30.0) sec Sodium 135 L (137-145) mmol/L Chloride 108 H (98-107) mmol/L Calcium 8.2 L (8.4-10.2) mg/dL Assessment and Plan Assessment: Impression: Acute bilateral pulmonary embolism, most likely provoked by recent total knee arthroplasty. Acute pulmonary hypertension secondary to pulmonary embolism, and the right ventricular strain, considering her recent knee surgery, patient has contraindication to thrombolytic therapy. History of benign essential hypertension. Normal cardiac catheterization on admission. Status post percutaneous mechanical thrombectomy of bilateral pulmonary emboli/thrombi, Recommendation: Continue Eliquis Patient will need to remain on Eliquis for at least 3 months and possibly 6 months. Cleared from my perspective for discharge planning Follow-up on outpatient basis. Discussed her condition with vascular surgery on the case Time with Patient: Less than 30
--- NOTE | 2019-10-18 10:45 | P.DS ---
Providers Date of admission: 10/15/19 21:36 Expected date of discharge: 10/18/19 Attending physician: Marita Baires MD Consults: 10/15/19 21:00 Consult Physician Stat Consulting Provider: [facility] Consult Reason/Comments: STEMI ACTIVATION COMPLETE Do you want consulting provider notified?: Yes 10/15/19 21:36 Consult Physician Urgent Consulting Provider: Bree Foreman Consult Reason/Comments: STEMI Do you want consulting provider notified?: Already Contacted 10/17/19 09:51 Consult Physician Stat Consulting Provider: Eliu Rutledge Consult Reason/Comments: Bilateral PE Do you want consulting provider notified?: Already Contacted Primary care physician: Holly Michel [facility] Course: Patient is a 60-year-old female with a past medical history of hypertension, recent right knee replacement ( 10/03/19) who presented to the ED with complaints of worsening exertional dyspnea and overall not feeling well. Initial EKG in the ER showed ST segment elevation in V1 and V2. Initial laboratory analysis showed an elevated troponin of 0.46. She was taken to the [facility] and underwent cardiac catheterization which showed normal coronary arteries. She had a preserved ejection fraction. There was concern for possible pulmonary embolus. She was taken for CTA of the chest which showed bilateral upper and lower lobe pulmonary emboli with signs of right heart strain. She was started on a heparin drip and admitted to the ICU. During her initial heart cath she did become hypoxic she required a nonrebreather for a small period of time and then was able to eat greater than 5 L nasal cannula. During her hospital stay she remained persistently tachycardic between 100 -110. She was seen by cardio and pulmonary. She had an echocardiogram with preserved EF of 55-60%, RV systolic dysfunction, moderate to severe tricuspid regurgitation, severe pulmonary hypertension with RVSP 67.72. On review of this echo it appeared the patient would be a good candidate for EKOS. I contacted Dr. Bright at [facility], who agreed with accept the patient with plans for possible EKOS and felt the patient was a good candidate. She was evaluated by vascular surgery the following day and decision was made to proceed with suction thrombectomy rather than transfer the patient. Suction thrombectomy was performed on 10/17/2019. Patient tolerated the procedure well. She was transitioned from heparin drip to Eliquis. She was cleared by vascular surgery for discharge requiring echocardiogram within 24-48 hours. Patient was seen and examined. No acute events overnight. She denies any chest pain, shortness of breath or palpitations. No nausea or vomiting. No fever or chills. Requesting arjun be taken out of her knee from knee surgery recently done 2 weeks ago. General: [non toxic], [no distress but appears short of breath], [appears at stated age] Derm: [warm], [dry] Head: [atraumatic], [normocephalic], [symmetric] Eyes: [EOMI], [no lid lag], [anicteric sclera] Mouth: [no lip lesion], [mucus membranes moist] Cardiovascular: [S1S2 reg], [no murmur], [positive DP pulse bilateral], Lungs: [CTA bilateral], [no rhonchi, no rales] , [no accessory muscle use] Abdominal: [soft], [ nontender to palpation], [no guarding], [no appreciable organomegaly] Ext: [no gross muscle atrophy], [no edema], [no contractures], [right knee has multiple arjun that are intact] Neuro: [no focal neuro deficits] Psych: [Alert], [oriented], [appropriate affect] Submassive PE with right heart strain and severe pulmonary hypertension Acute hypoxic respiratory failure due to above Type II myocardial infarction secondary to pulmonary embolus Hypertension CTA chest shows numerous upper and lower lobe pulmonary emboli with no saddle embolus, enlarged right ventricle with right heart strain. Echocardiogram shows EF 55-60% with moderate concentric LVH, enlarged right ventricle, severe pulmonary hypertension. Suction thrombectomy was performed yesterday. Patient is currently maintaining saturation greater than 90% on room air. Plans are to repeat echocardiogram within 24-[address] Zamudio. Troponins were initially elevated for which cardiac catheterization was performed on admission which showed clean coronaries. Her troponin elevation is likely type II demand ischemia. Blood pressure has been within normal limits. We'll discharge the patient home with close follow-up with PCP, cardiology and vascular surgery. She will need repeat echocardiogram as mentioned within 24-48 hours. Eliquis to be filled prior to discharge. Patient verbalized understanding of the plan. This complex discharge took about 35 minutes to complete. Pertinent Studies: Chest CTA, venous duplex, chest x-ray, echocardiogram Procedures: Suction thrombectomy Patient Condition at Discharge: Stable Plan - Discharge Summary New Discharge Prescriptions: New Apixaban [Eliquis] 10 mg PO BID 30 Days #70 tab Continue amLODIPine [Norvasc] 5 mg PO BID Aspirin EC [Ecotrin Low Dose] 81 mg PO BID Discharge Medication List Aspirin EC [Ecotrin Low Dose] 81 mg PO BID 10/16/19 [History] amLODIPine [Norvasc] 5 mg PO BID 10/16/19 [History] Apixaban [Eliquis] 10 mg PO BID 30 Days #70 tab 10/18/19 [Rx] Follow up Appointment(s)/Referral(s): Hiren Evangelista MD [REFERRING] - 1 Week Eliu Rutledge DO [STAFF PHYSICIAN] - 10 Days (F/U THROMBECTOMY ) [facility], [NON-STAFF] - 1-2 Days Holly Michel MD [Primary Care Provider] - 1-2 days Claudio Nelson MD [STAFF PHYSICIAN] - 3 Days Activity/Diet/Wound Care/Special Instructions: Diet: Low-salt Follow-up PCP within 3 days. Follow-up cardiology within 1-2 days. Repeat echocardiogram within 24-[address] Nelson. Follow-up with vascular surgery with the appointment given to you. Follow-up with orthopedic surgery within 1 week of discharge. Take all medications as advised. Come back to the ED for recurrent symptoms or chest pain, shortness of breath, palpitations or dizziness. Discharge Disposition: HOME SELF-CARE
[2019-10-18 13:29] VITALS: BP 122/84; PULSE 95; RESP 19
== END 2019-10-18 14:34 | disposition home or self-care (01) | DRG 270 ==
LOC: EC 20:47 → 2SICU 21:36
PROVIDERS: ADMIT Internal Medicine; ATTEND Internal Medicine
PROC: 4A023N7 Measurement of Cardiac Sampling and Pressure, Left Heart, Percutaneous Approach (ICD-10-PCS; 2019-10-15)
PROC: B2111ZZ Fluoroscopy of Multiple Coronary Arteries using Low Osmolar Contrast (ICD-10-PCS; 2019-10-15)
PROC: 02CR3ZZ Extirpation of Matter from Left Pulmonary Artery, Percutaneous Approach (ICD-10-PCS; principal; 2019-10-17 17:30)
PROC: B31S1ZZ Fluoroscopy of Right Pulmonary Artery using Low Osmolar Contrast (ICD-10-PCS; principal; 2019-10-17 17:30)
PROC: 02CQ3ZZ Extirpation of Matter from Right Pulmonary Artery, Percutaneous Approach (ICD-10-PCS; principal; 2019-10-17 17:30)
PROC: B31T1ZZ Fluoroscopy of Left Pulmonary Artery using Low Osmolar Contrast (ICD-10-PCS; principal; 2019-10-17 17:30)
PROC: 3E06317 Introduction of Other Thrombolytic into Central Artery, Percutaneous Approach (ICD-10-PCS; principal; 2019-10-17 17:30)
DX: T81.718A Complication of other artery following a procedure, not elsewhere classified, initial encounter (principal); I26.09 Other pulmonary embolism with acute cor pulmonale; J96.01 Acute respiratory failure with hypoxia; I21.A1 Myocardial infarction type 2; E87.1 Hypo-osmolality and hyponatremia; I27.24 Chronic thromboembolic pulmonary hypertension; I10 Essential (primary) hypertension; I07.1 Rheumatic tricuspid insufficiency; E66.9 Obesity, unspecified; Z79.82 Long term (current) use of aspirin; Z79.899 Other long term (current) drug therapy; Z68.37 Body mass index [BMI] 37.0-37.9, adult; Z96.651 Presence of right artificial knee joint; Y83.1 Surgical operation with implant of artificial internal device as the cause of abnormal reaction of the patient, or of later complication, without mention of misadventure at the time of the procedure; Y92.009 Unspecified place in unspecified non-institutional (private) residence as the place of occurrence of the external cause
CPT/HCPCS: 36415; 37184; 71045; 71275; 75743; 76937; 80048; 80053; 80061; 82550; 82553; 83880; 84484; 85025; 85027; 85610; 85730; 86850; 86900; 86901; 93005; 93306; 93458; 93970; 96374; 99291

== ENCOUNTER → 2020-05-13 | Outpatient (CLI) | payer BC ==
--- NOTE | 2020-05-13 11:44 | CT ---
EXAMINATION TYPE: CT angio chest DATE OF EXAM: 05/13/2020 COMPARISON: Prior CT 10/15/2019 HISTORY: Pulmonary embolism CT DLP: 371.3 mGycm Automated exposure control for dose reduction was used. CONTRAST: CTA scan of the thorax is performed with IV Contrast, patient injected with 100, wasted 39 ml mL of I sovue 370, pulmonary embolism protocol. MIP images are created and reviewed. 3D reconstructed image s are created on an independent workstation and reviewed. FINDINGS: LUNGS: The lungs are grossly clear, there is no concerning parenchymal mass or nodule identified. T here is no pleural effusion or pneumothorax seen. The tracheobronchial tree is patent. AORTA: No additional significant abnormality is seen. MEDIASTINUM: There is satisfactory enhancement of the pulmonary artery and its branches, there is no CT evidence for pulmonary embolism. There are no greater than 1 cm hilar or mediastinal lymph nodes. No pericardial effusion is seen. Pulmonary artery is dilated similar to prior exam OTHER: There is a small hiatal hernia present as on prior IMPRESSION: RESOLUTION OF PATIENT'S PULMONARY EMBOLISM BILATERALLY
== END | disposition home or self-care (01) ==
LOC: RADCTMAIN 09:37
PROVIDERS: ATTEND Family Medicine
DX: I26.90 Septic pulmonary embolism without acute cor pulmonale (principal); R91.8 Other nonspecific abnormal finding of lung field
CPT/HCPCS: 71275; Q9967

== ENCOUNTER → 2020-05-28 | Outpatient (CLI) | payer BC ==
--- NOTE | 2020-05-29 19:01 | ECHOF ---
Referral Reason:Z01.810 pre op, I26.9 pulmonary embolism MEASUREMENTS -------- HEIGHT: 162.6 cm WEIGHT: 92.5 kg BP: RVIDd: 3.7 cm (< 3.3) IVSd: 1.3 cm (0.6 - 1.1) LVIDd: 4.1 cm (3.9 - 5.3) LVPWd: 1.2 cm (0.6 - 1.1) IVSs: 1.8 cm LVIDs: 2.5 cm LVPWs: 1.7 cm LAESV Index (A-L): 25.30 ml/m Ao Diam: 3.4 cm (2.0 - 3.7) AV Cusp: 2.1 cm (1.5 - 2.6) MV EXCURSION: 19.089 mm (> 18.000) MV EF SLOPE: 90 mm/s (70 - 150) EPSS: 0.5 cm MV E Bhupendra: 0.87 m/s MV DecT: 173 ms MV A Bhupendra: 0.70 m/s MV E/A Ratio: 1.24 AR PHT: 586 ms RAP: 5.00 mmHg RVSP: 32.90 mmHg FINDINGS -------- This was a technically adequate study. The left ventricular size is normal. There is mild concentric left ventricular hypertrophy. Overa ll left ventricular systolic function is low-normal with, an EF between 50 - 55 %. The diastolic fi lling pattern is normal for the age of the patient 10.63. The right ventricle is mildly enlarged. Normal LA size by volume 22+/-6 ml/m2. The right atrium is normal in size. Interatrial and interventricular septum intact. The aortic valve is trileaflet and appears structurally normal. There is mild aortic regurgitation. There is no evidence of aortic stenosis. There is trace to mild mitral regurgitation. Mild tricuspid regurgitation present. There is borderline pulmonary hypertension. The right ventr icular systolic pressure, as measured by Doppler, is 32.90mmHg. There is no pulmonic regurgitation present. The aortic root size is normal. Normal inferior vena cava with normal inspiratory collapse consistent with estimated right atrial pre ssure of 5 mmHg. There is no pericardial effusion. CONCLUSIONS -------- 1. The left ventricular size is normal. 2. There is mild concentric left ventricular hypertrophy. 3. Overall left ventricular systolic function is low-normal with, an EF between 50 - 55 %. 4. The diastolic filling pattern is normal for the age of the patient 10.63 5. The right ventricle is mildly enlarged. 6. There is mild aortic regurgitation. 7. There is trace to mild mitral regurgitation. 8. Mild tricuspid regurgitation present. 9. There is borderline pulmonary hypertension. 10. The right ventricular systolic pressure, as measured by Doppler, is 32.90mmHg. ELECTROLYSIST: Mariposa Patino RDCS
== END | disposition home or self-care (01) ==
LOC: RADECHMAIN 15:33
PROVIDERS: ATTEND Family Medicine
DX: I08.3 Combined rheumatic disorders of mitral, aortic and tricuspid valves (principal); I27.20 Pulmonary hypertension, unspecified
CPT/HCPCS: 93306